=== PATIENT | female | born 1940 | race Caucasian/White ===

== ENCOUNTER → 2016-03-10 | Outpatient (CLI) | payer BC ==
[~2016-03-10] MED LIST: ALBU1AER9 INH; ATRIN INH; CRDCD240 PO; DIGO0.122 PO; LEVO50TA PO; METO-217 PO; SIMV40TA2 PO
[2016-03-10 09:37] LABS: BASO % 0.5 %; BASO ABS # 0.03 K/uL (0-0.2); COMPLETE YES; EOS % 2.3 %; HEMATOCRIT 40.6 % (37-47); IG% 0.5 %; LYMPH % 24.6 %; LYMPH ABS # 1.53 K/uL (1.2-3.4); MEAN CELL VOLUME 92.3 fL (80-100); MEAN CORPUSCULAR HEMOGLOBIN 31.1 pg (25-34); MEAN CORPUSCULAR HGB CONC 33.7 g/dl (32-36); MEAN PLATELET VOLUME 10.2 fL (7.4-10.4); NEUT % 63.1 %; PLATELET COUNT 223 K/uL (130-400); WHITE BLOOD COUNT 6.21 K/uL (4.8-10.8)
[2016-03-10 10:01] LABS: ESTIMATED AVERAGE GLUCOSE 108 mg/dl; HA1C FLAG Normal (Normal)
[2016-03-10 10:05] LABS: ALB/GLOB RATIO 1.2 (0.9-2); ALT/SGPT 35 U/L (12-78); AST/SGOT 21 U/L (15-37); BLOOD UREA NITROGEN 13 mg/dl (7-18); BUN/CREATININE RATIO 14.7 (10-20); CALCIUM 8.2 mg/dl (8.5-10.1); CARBON DIOXIDE 24 mmol/L (21-32); CHLORIDE 110 mmol/L (98-107); CHOLESTEROL 150 mg/dl (0-200); CREATININE 0.88 mg/dl (0.60-1.20); GLUCOSE 93 mg/dl (70-99); POTASSIUM 3.9 mmol/L (3.5-5.1); SODIUM 144 mmol/L (136-145); TRIGLYCERIDES 89 mg/dl (0-150); VERY LOW DENSITY LIPOPROT CALC 18 mg/dl
[2016-03-10 10:09] LABS: ALKALINE PHOSPHATASE 86 U/L (45-117); CHOLESTEROL/HDL RATIO 2.1; HDL CHOLESTEROL 72 mg/dl; LDL CHOLESTEROL CALCULATED 60 mg/dl
--- NOTE | 2016-03-17 06:57 | CODING QUERY MEDICAL NECESSITY ---
SUPPORTING DIAGNOSIS NEEDED A supporting diagnosis is required for the test/procedure performed on this patient in order for us to be reimbursed by the patient's insurance. Please provide a supporting diagnosis for the following test/procedure listed below next to the test name along with your signature. *If there is no additional diagnosis for this patient that would support the following test/procedure please document that below next to the test/procedure. Test(s)/Procedure(s) that require a supporting diagnosis: DOS 03/10 * Hba1c DIAGNOSIS: * Lipids DIAGNOSIS: Provider Signature: Date: Thank you Rena Abdullahi Health Information Management Once completed, please kindly fax back to [phone] For questions please call [phone]
== END | disposition home or self-care (01) ==
LOC: C.LAB 08:13
PROVIDERS: ATTEND Internal Medicine
DX: Z79.01 Long term (current) use of anticoagulants (principal); Z51.81 Encounter for therapeutic drug level monitoring; Z00.00 Encounter for general adult medical examination without abnormal findings; E78.5 Hyperlipidemia, unspecified

== ENCOUNTER → 2016-05-17 | Outpatient (CLI) | payer BC | END | disposition home or self-care (01) | LOC: C.PATHSPEC 13:53 | PROVIDERS: ATTEND Dermatology | DX: L57.0 Actinic keratosis (principal); L82.1 Other seborrheic keratosis ==

== ENCOUNTER → 2016-06-22 | Outpatient (CLI) | payer BC ==
--- NOTE | 2016-06-23 13:55 | MAMMOGRAPHY REPORT ---
BILATERAL DIGITAL SCREENING MAMMOGRAM WITH CAD: 06/22/2016 CLINICAL HISTORY: Routine screening. Patient has no complaints. TECHNIQUE: Bilateral CC and MLO views were obtained. Current study was also evaluated with a Comput er Aided Detection (CAD) system. COMPARISON: Comparison is made to exams dated: 06/10/2014 mammogram, 06/06/2013 mammogram, 06/05/2012 heydi mogram, 06/02/2011 mammogram, 06/01/2010 mammogram, and 05/29/2009 mammogram - [facility] nter. BREAST COMPOSITION: There are scattered areas of fibroglandular density in both breasts. FINDINGS: There are scattered benign-appearing punctate microcalcifications in the breasts. No new suspicious mass, architectural distortion or cluster of microcalcifications is seen. IMPRESSION: ACR BI-RADS CATEGORY 1: NEGATIVE There is no mammographic evidence of malignancy. A 1 year screening mammogram is recommended. The p atient will receive written notification of the results. Approximately 10% of breast cancers are not detected with mammography. A negative mammographic repor t should not delay biopsy if a clinically suggestive mass is present. Eda Mcgovern M.D. ay/:06/22/2016 16:25:54 Tong Hooker: Shazia MARTINEZ(Chucky)(Yohannes), [facility] letter sent: Normal 1/2 BI-RADS Code: ACR BI-RADS Category 1: Negative
== END | disposition home or self-care (01) ==
LOC: C.MAMM 13:02
PROVIDERS: ATTEND Internal Medicine
DX: Z12.31 Encounter for screening mammogram for malignant neoplasm of breast (principal)

== ENCOUNTER → 2016-12-10 | Outpatient (CLI) | payer BC ==
[2016-12-10 13:33] LABS: CALCIUM URINE 9.6 mg/dl
== END | disposition home or self-care (01) ==
LOC: C.LAB 11:45
PROVIDERS: ATTEND Internal Medicine
DX: C73 Malignant neoplasm of thyroid gland (principal); E89.2 Postprocedural hypoparathyroidism; E55.9 Vitamin D deficiency, unspecified

== ENCOUNTER → 2017-02-01 | Outpatient (CLI) | payer BC ==
[2017-02-01 17:43] LABS: BASO % 0.3 %; BASO ABS # 0.02 K/uL (0-0.2); COMPLETE YES; EOS % 1.2 %; HEMATOCRIT 42.2 % (37-47); IG% 0.4 %; LYMPH % 22.5 %; LYMPH ABS # 1.55 K/uL (1.2-3.4); MEAN CELL VOLUME 91.7 fL (80-100); MEAN CORPUSCULAR HEMOGLOBIN 31.3 pg (25-34); MEAN CORPUSCULAR HGB CONC 34.1 g/dl (32-36); MEAN PLATELET VOLUME 10.1 fL (7.4-10.4); NEUT % 67.6 %; PLATELET COUNT 226 K/uL (130-400); WHITE BLOOD COUNT 6.88 K/uL (4.8-10.8)
[2017-02-01 18:07] LABS: ALT/SGPT 21 U/L (12-78); AST/SGOT 17 U/L (15-37); BLOOD UREA NITROGEN 8 mg/dl (7-18); BUN/CREATININE RATIO 8.9 (10-20); CALCIUM 9.1 mg/dl (8.5-10.1); CARBON DIOXIDE 27 mmol/L (21-32); CHLORIDE 106 mmol/L (98-107); CREATININE 0.92 mg/dl (0.60-1.20); GLUCOSE 85 mg/dl (70-99); POTASSIUM 3.7 mmol/L (3.5-5.1); SODIUM 141 mmol/L (136-145)
[2017-02-01 18:17] LABS: ALB/GLOB RATIO 1.2 (0.9-2); ALKALINE PHOSPHATASE 96 U/L (45-117)
[2017-02-01 18:57] LABS: LYME DISEASE AB IGM NEG (NEG)
[2017-02-01 18:59] LABS: LYME DISEASE AB IGG NEG (NEG)
--- NOTE | 2017-02-07 10:54 | CODING QUERY MEDICAL NECESSITY ---
SUPPORTING DIAGNOSIS NEEDED Dr. Gunter, A supporting diagnosis is required for the test/procedure performed on this patient in order for us to be reimbursed by the patient's insurance. Please provide a supporting diagnosis for the following test/procedure listed below next to the test name along with your signature. *If there is no additional diagnosis for this patient that would support the following test/procedure please document that below next to the test/procedure. Test(s)/Procedure(s) that require a supporting diagnosis: * ([id number]) VITAMIN D ASSAY DIAGNOSIS: DATE OF SERVICE: 02/01/17 Provider Signature: Date: Thank you Jed Bunch [facility] Information Management Once completed, please kindly fax back to [phone] For questions please call [phone]
== END | disposition home or self-care (01) ==
LOC: C.LAB 16:38
PROVIDERS: ATTEND Internal Medicine
DX: M19.90 Unspecified osteoarthritis, unspecified site (principal); C73 Malignant neoplasm of thyroid gland; R53.83 Other fatigue; R41.3 Other amnesia; R68.89 Other general symptoms and signs

== ENCOUNTER → 2017-07-27 | Outpatient (CLI) | payer BC ==
--- NOTE | 2017-07-27 14:23 | MAMMOGRAPHY REPORT ---
BILATERAL DIGITAL SCREENING MAMMOGRAM TOMOSYNTHESIS WITH CAD: 07/27/2017 CLINICAL HISTORY: Routine screening. Patient has no complaints. TECHNIQUE: Breast tomosynthesis in addition to standard 2D mammography was performed. Current study was also evaluated with a Computer Aided Detection (CAD) system. COMPARISON: Comparison is made to exams dated: 06/22/2016 mammogram, 06/10/2014 mammogram, 06/06/2013 heydi mogram, 06/05/2012 mammogram, 06/02/2011 mammogram, and 06/01/2010 mammogram - [facility] er. BREAST COMPOSITION: There are scattered areas of fibroglandular density in both breasts. FINDINGS: No suspicious masses, calcifications, or areas of architectural distortion are noted in ei ther breast. There has been no significant interval change compared to prior exams. Scattered bilater al benign-appearing calcifications are not significantly changed. IMPRESSION: ACR BI-RADS CATEGORY 2: BENIGN There is no mammographic evidence of malignancy. A 1 year screening mammogram is recommended. The pa tient will receive written notification of the results. Approximately 10% of breast cancers are not detected with mammography. A negative mammographic report should not delay biopsy if a clinically suggestive mass is present. Velma Teran M.D. ah/:07/27/2017 12:21:30 Garbage Man: Bethany DESAI)(Yohannes), [facility] letter sent: Normal 1/2 BI-RADS Code: ACR BI-RADS Category 2: Benign
== END | disposition home or self-care (01) ==
LOC: C.MAMM 11:31
PROVIDERS: ATTEND Internal Medicine
DX: Z12.31 Encounter for screening mammogram for malignant neoplasm of breast (principal)

== ENCOUNTER 2021-06-02 11:05 | Observation (INO) ==
[2021-06-02] MEDS ORDERED: SODIUM CHLORIDE 0.9% 1000ML 1,000 ML IV ONE (11:27)
--- NOTE | 2021-06-02 11:30 | Emergency Department Note ---
Impression & Plan Syncope, Dementia, A-fib, Hypotension ED Provider Note NAME: MELIZA CONDON AGE: 80 SEX: F : 1940 ARRIVES VIA: Ambulance INFORMANT: Patient ED PROVIDER(S): Lg Medeiros DO CHIEF COMPLAINT: Syncope HPI: Patient is a 1-year-old female who presents the ER following syncope. Patient notes that she does not really remember the episode or what happened. She does have a history of dementia as well as paroxysmal A. fib, and mitral regurg. She denies all complaints at this time. notes that she woke up this morning was feeling slightly off and consequently back down with the bed. Patient then woke back up and went to get a shower to get ready and he heard a thud. He went in and she was sitting on her bottom behind the door. ROS: See above HPI for pertinent positives & negatives. A total of 10 systems reviewed and were otherwise negative. PAST MEDICAL HISTORY:See Below PAST SURGICAL HISTORY:See Below FAMILY HISTORY:See Below SOCIAL HISTORY:See Below HOME MEDICATIONS:See Below ALLERGIES:See Below VITALS:See Below PHYSICAL EXAMINATION: GENERAL: Sitting up in bed, alert, well appearing, well nourished, no distress, non-toxic EYE EXAM: normal conjunctiva. PERRL and EOM's grossly intact. HEAD: NC/AT OROPHARYNX: no exudate, no erythema, lips, buccal mucosa, and tongue normal and mucous membranes are moist NECK: supple, no nuchal rigidity, no adenopathy, non-tender LUNGS: Clear to auscultation. Normal chest wall mechanics HEART: no murmurs, S1 normal and S2 normal ABDOMEN: abdomen soft, non-tender, normo-active bowel sounds, no masses, no rebound or guarding. UPPER EXTREMITIES: upper extremities are grossly normal. LOWER EXTREMITIES: No pitting edema. NEURO EXAM: Awake alert following commands oriented to person and place cranial nerves II-XII grossly intact, normal speech, no gross weakness of arms, no gross weakness of legs. MEDICAL DECISION MAKING: Patient is an 80-year-old female who presents ER for above-stated complaint. IV was established blood was obtained. Labs showed no significant leukocytosis or anemia. BMP with slightly elevated chloride. LFTs bilirubin and lipase was unremarkable. Troponin was negative. Covid negative. TSH was slightly elevated. She was slightly hypotensive in the 80s initially on arrival but was given IV fluids. EKG was unremarkable but did show an A. fib. CT head and neck were negative. With the dementia she does not remember this occurring. She was updated and discussed with hospitalist for further evaluation. Triage Nursing notes reviewed. Limited review of prior medical records performed Vital Signs: reviewed and remarkable for hypotension Differential diagnosis: Differential diagnosis includes etiologies such as vasovagal event, infection, hypoglycemia, electrolyte abnormalities, cardiac sources, intracerebral event, toxicologic, neurologic, as well as others were entertained. ER treatment provided: See below Diagnostics interpreted by me: ECG: A. fib rate of 71 Normal axis No PVCs QTC 465 Cardiac Monitoring: An order was placed for continuous cardiac monitoring. The monitor shows a rate of 70 with sinus rhythm. Laboratory studies: As stated above and show below. Imaging studies: CT head was unremarkable Portable AP upright 1 view of the chest was unremarkable Consultation(s): Discussed with Dr. Gomez for further evaluation Procedures: none Critical Care: None Past Med/Surg History Medical History (Updated 06/02/21 @ 17:49 by Lg Medeiros DO) Alzheimer disease Anticoagulant long-term use xarelto daily Dementia Hyperlipidemia Hypoparathyroidism Hypothyroidism Moderate mitral regurgitation Paroxysmal atrial fibrillation follows with Dr. 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 Surgical History History of colonoscopy History of repair of right rotator cuff History of salpingo-oophorectomy History of tonsillectomy History of total abdominal hysterectomy History of total thyroidectomy Status post lymph node biopsy after thyroidectomy Family History Father Acute myocardial infarction Mother Alcoholism Other No family history of adverse response to anesthesia Denies family history of Ovarian cancer Prostate cancer Myocardial infarction Breast cancer Lung cancer Colorectal cancer Social History Smoking Status: Former smoker Tobacco Type: Cigarettes Age Started Using Tobacco: 18; Age Quit Using Tobacco: 23; Second Hand Exposure: No; Hx Alcohol Use: Yes Alcohol type: beer and wine Alcohol Intake Frequency: Monthly or Less Alcohol Intake Frequency Comment: on occassion Hx Substance Use: No Preferred Language: Welsh Communication Ability: Effective Visual Impairment: Limited Hearing Ability: Hard of Hearing Toy Maker Required: No Beliefs That Will Affect Care: None marital status: Current Living Situation: Spouse current occupational status: retired How many Children do You have: 2 Feels Safe at Home: Yes Safety Concerns: Feels Safe At This Time Childhood Exposure to Second-Hand Smoke: No caffeine: Yes (drinks coffee and tea ) Dental Care, Regularly: Yes Physical Activity Frequency: Daily Physical Activity Frequency Comment: tries to walk throughout the week Seatbelt Use: always Sunscreen Use: Yes (states sometimes ) Assistive Devices: None Allergies Allergies Allergy/AdvReac Type Severity Reaction Status Date / Time donepezil Allergy Intermediate cramping Verified 06/02/21 12:37 with legs rivastigmine Allergy Mild Rash Verified 06/02/21 12:37 liothyronine AdvReac Unknown 05/03/11-HOLD Verified 06/02/21 12:[address] CANDELARIO Home Meds Home Medications Medication Instructions Recorded Confirmed calcium carbonate 200 mg calcium 400 mg PO QDL tab 09/01/18 06/02/21 (500 mg) chewable tablet cholecalciferol (vitamin D3) 25 1,000 units PO QDL tab 09/01/18 06/02/21 mcg (1,000 unit) tablet cyanocobalamin (vitamin B-12) 1,000 mcg PO QAM cap 09/01/18 06/02/21 1,000 mcg capsule levothyroxine 125 mcg tablet 125 mcg PO QAM #90 tab 09/01/18 06/02/21 diltiazem HCl 240 mg 240 mg PO QPM 01/05/21 06/02/21 capsule,extended release 24 hr metoprolol succinate 100 mg 100 mg PO QAM 01/05/21 06/02/21 tablet,extended release 24 hr Previous Rx's Medication Instructions Recorded memantine 10 mg tablet 10 mg PO BID #180 tab 03/24/21 simvastatin 40 mg tablet 40 mg PO QPM #90 tab 05/04/21 rivaroxaban 20 mg tablet (Xarelto) 20 mg PO QPM #90 tab 05/11/21 Results & Data (ED) Vital Signs Vital Signs - 24 hr 06/02/21 11:05 06/02/21 11:09 06/02/21 11:21 Temperature 37.1 C Temperature Source Oral Pulse Rate 85 71 Pulse Rate [Left Radial] Pulse Rhythm Regular Regular Pulse Rhythm [Left Radial] Pulse Strength Normal Respiratory Rate 20 20 Respiratory Effort / Characteristics Non-Labored Respiratory Depth Normal Respiratory Pattern Regular Blood Pressure 86/56 L Blood Pressure [Left Arm] Blood Pressure Mean 66 Blood Pressure Mean [Left Arm] Blood Pressure Position Lying Blood Pressure Position [Left Arm] Pulse Oximetry 98 96 Oxygen Delivery Method Room Air Room Air Room Air Sepsis Recent Fever Within 48 Hours No Sepsis New/Unexplained Change in Mental Status No Sepsis Action Taken by Nursing No Action Required 06/02/21 12:09 Temperature Temperature Source Pulse Rate Pulse Rate [Left Radial] 66 Pulse Rhythm Pulse Rhythm [Left Radial] Irregular Pulse Strength Respiratory Rate 20 Respiratory Effort / Characteristics Respiratory Depth Normal Respiratory Pattern Blood Pressure Blood Pressure [Left Arm] 112/58 L Blood Pressure Mean Blood Pressure Mean [Left Arm] 76 Blood Pressure Position Blood Pressure Position [Left Arm] Lying Pulse Oximetry 97 Oxygen Delivery Method Room Air Sepsis Recent Fever Within 48 Hours Sepsis New/Unexplained Change in Mental Status Sepsis Action Taken by Nursing Laboratory Data Result diagrams: 06/02/21 11:19 06/02/21 11:19 Lab Results 06/02/21 06/02/21 06/02/21 Range/Units 11:19 11:19 11:19 WBC 7.34 (4.8-10.8) K/uL RBC 4.43 (4.2-5.4) M/uL Hgb 14.3 (12.0-16.0) g/dL Hct 42.6 (37-47) % MCV 96.2 (80-100) fL MCH 32.3 (25-34) pg MCHC 33.6 (32-36) g/dL RDW Std Deviation 44.7 (36.4-46.3) fL RDW Coeff of Fabian 12.7 (11.5-14.5) % Plt Count 204 (130-400) K/uL MPV 10.6 H (7.4-10.4) fL Immature Gran % (Auto) 0.3 % Neut % (Auto) 76.0 % Lymph % (Auto) 15.9 % [place] % (Auto) 6.7 % Eos % (Auto) 0.8 % Baso % (Auto) 0.3 % Neut # (Auto) 5.58 (1.4-6.5) K/uL Lymph # (Auto) 1.17 L (1.2-3.4) K/uL [place] # (Auto) 0.49 (0.11-0.59) K/uL Eos # (Auto) 0.06 (0-0.5) K/uL Baso # (Auto) 0.02 (0-0.2) K/uL Immature Gran # (Auto) 0.02 (0.00-0.02) K/uL Sodium 142 (136-145) mmol/L Potassium 3.7 (3.5-5.1) mmol/L Chloride 108 H (98-107) mmol/L Carbon Dioxide 25 (21-32) mmol/L Anion Gap 9 (3-11) BUN 20 (6-23) mg/dl Creatinine 0.94 (0.6-1.2) mg/dl Est Cr Clr Drug Dosing Not Reportable Est GFR ( Amer) 65.5 ml/min Est GFR (Non-Af Amer) 56.5 ml/min BUN/Creatinine Ratio 21.3 H (10-20) Glucose 133 H (70-99(Fasting)) mg/dl Calcium 8.7 (8.5-10.1) mg/dl Total Bilirubin 0.9 (0.2-1.0) mg/dl AST 17 (13-39) U/L ALT 11 (7-52) U/L Alkaline Phosphatase 73 (34-104) U/L Troponin I < 0.03 (0-0.04) ng/ml Total Protein 6.4 (6.0-8.3) gm/dl Albumin 4.0 (3.4-5.0) gm/dl Globulin 2.4 L (2.5-4.0) gm/dl Albumin/Globulin Ratio 1.7 (0.9-2) Lipase 29 (11-82) U/L TSH 5.866 H (0.300-4.500) uIu/ml Free T4 1.18 (0.61-1.60) ng/dl SARS-CoV-2, RNA, NAAT (NEGATIVE) 06/02/21 Range/Units 13:02 WBC (4.8-10.8) K/uL RBC (4.2-5.4) M/uL Hgb (12.0-16.0) g/dL Hct (37-47) % MCV (80-100) fL MCH (25-34) pg MCHC (32-36) g/dL RDW Std Deviation (36.4-46.3) fL RDW Coeff of Fabian (11.5-14.5) % Plt Count (130-400) K/uL MPV (7.4-10.4) fL Immature Gran % (Auto) % Neut % (Auto) % Lymph % (Auto) % [place] % (Auto) % Eos % (Auto) % Baso % (Auto) % Neut # (Auto) (1.4-6.5) K/uL Lymph # (Auto) (1.2-3.4) K/uL [place] # (Auto) (0.11-0.59) K/uL Eos # (Auto) (0-0.5) K/uL Baso # (Auto) (0-0.2) K/uL Immature Gran # (Auto) (0.00-0.02) K/uL Sodium (136-145) mmol/L Potassium (3.5-5.1) mmol/L Chloride (98-107) mmol/L Carbon Dioxide (21-32) mmol/L Anion Gap (3-11) BUN (6-23) mg/dl Creatinine (0.6-1.2) mg/dl Est Cr Clr Drug Dosing Est GFR ( Amer) ml/min Est GFR (Non-Af Amer) ml/min BUN/Creatinine Ratio (10-20) Glucose (70-99(Fasting)) mg/dl Calcium (8.5-10.1) mg/dl Total Bilirubin (0.2-1.0) mg/dl AST (13-39) U/L ALT (7-52) U/L Alkaline Phosphatase (34-104) U/L Troponin I (0-0.04) ng/ml Total Protein (6.0-8.3) gm/dl Albumin (3.4-5.0) gm/dl Globulin (2.5-4.0) gm/dl Albumin/Globulin Ratio (0.9-2) Lipase (11-82) U/L TSH (0.300-4.500) uIu/ml Free T4 (0.61-1.60) ng/dl SARS-CoV-2, RNA, NAAT NEGATIVE (NEGATIVE) Administered Medications Lactated Ringer's (Lr) 1,000 mls @ 80 mls/hr IV .[id number] BRIGIDO Stop: 07/02/21 13:16 Last Admin: 06/02/21 14:26 Dose: 80 mls/hr Documented by: [id number] Discontinued Medications Sodium Chloride (Nss 1000ml) 1,000 mls @ 999 mls/hr IV .[id number] ONE Stop: 06/02/21 12:27 Last Infusion: 06/02/21 12:47 Dose: 0 mls/hr Documented by: [id number] Admin: 06/02/21 11:43 Dose: 999 mls/hr Documented by: [id number] Imaging Data Radiologist's Impression: Chest X-Ray 06/02/21 11:25 SINGLE VIEW CHEST CLINICAL HISTORY: Atypical chest pain. FINDINGS: An AP, portable, upright chest radiograph is compared to study dated 05/03/2011. The heart is enlarged noting atherosclerotic calcification of the thoracic aorta. The pulmonary vasculature is noncongested. Chronic interstitial thickening is similar to previous. There is mild bibasilar scarring/atelectasis. The lungs and pleural spaces are otherwise clear. No pneumothorax is seen. The skeletal structures are osteopenic. The bony thorax is grossly intact. Arthritic change is noted in the shoulders. IMPRESSION: Cardiomegaly with no active disease in the chest. ACT 112: Negative or not required by law. Electronically signed by: Lonny Kendrick M.D. 06/02/2021 12:[address] 06/02/21 11:27 CT head/brain wo con CLINICAL HISTORY: 80 years-old Female with syncope. Acute syncope TECHNIQUE: Multiple axial CT images of the head were obtained without contrast. A dose lowering technique was utilized adhering to the principles of ALARA. CT DOSE: 788.63 mGycm COMPARISON: Brain MRI 07/30/2014 FINDINGS: No acute intracranial hemorrhage, midline shift, intracranial mass, hydrocephalus, territorial ischemia or abnormal extra-axial collection. Age- related involutional changes. Cerebral vascular and falx cerebri calcifications noted. Mild white matter hypodensities suggest chronic microvascular ischemic disease. The calvarium is intact. Prior bilateral lens repair. The paranasal sinuses, mastoid air cells, and middle ear cavities are clear. IMPRESSION: No acute intracranial abnormality or calvarial fracture. ACT 112: Negative or not required by law. The above report was generated using voice recognition software. It may contain grammatical, syntax or spelling errors. Electronically signed by: Jose Bradford M.D. 06/02/2021 12:27 PM Discharge Plan Visit Data Chief Complaint: Syncope Stated Complaint: SYNCOPE ED Provider: Lg Medeiros Discharge Problem: Syncope, Dementia, A-fib, Hypotension Patient Disposition: Admitted As Inpatient Discharge Instructions Interventions: ED Discharge Assessment Last Done: 06/02/21 17:10 Discharge Problem: Syncope Qualifiers: Syncope type: unspecified Qualified Code(s): R55 - Syncope and collapse Dementia Qualifiers: Dementia type: unspecified type Dementia behavioral disturbance: without behavioral disturbance Qualified Code(s): F03.90 - Unspecified dementia without behavioral disturbance A-fib Qualifiers: Atrial fibrillation type: unspecified Qualified Code(s): I48.91 - Unspecified atrial fibrillation Hypotension Qualifiers: Hypotension type: unspecified hypotension type Qualified Code(s): I95.9 - Hypotension, unspecified
[2021-06-02 11:37] LABS: Basophils # (auto) 0.02 K/uL (0-0.2); Basophils % (auto) 0.3 %; Eosinophils # (auto) 0.06 K/uL (0-0.5); Eosinophils % (auto) 0.8 %; Hematocrit (blood only) 42.6 % (37-47); Hemoglobin 14.3 g/dL (12.0-16.0); Immature Granulocytes # (auto) 0.02 K/uL (0.00-0.02); Immature Granulocytes % (auto) 0.3 %; Lymphocytes # (auto) 1.17 K/uL (1.2-3.4); Lymphocytes % (auto) 15.9 %; Mean Corpuscular Hemoglobin 32.3 pg (25-34); Mean Corpuscular Hgb Conc 33.6 g/dL (32-36); Mean Corpuscular Volume 96.2 fL (80-100); Mean Platelet Volume 10.6 fL (7.4-10.4); Monocytes # (auto) 0.49 K/uL (0.11-0.59); Monocytes % (auto) 6.7 %; Neutrophils # (auto) 5.58 K/uL (1.4-6.5); Platelet Count 204 K/uL (130-400); RDW Coefficient of Variation 12.7 % (11.5-14.5); RDW Standard Deviation 44.7 fL (36.4-46.3); Red Blood Count 4.43 M/uL (4.2-5.4); White Blood Count 7.34 K/uL (4.8-10.8)
--- NOTE | 2021-06-02 12:11 | XRay Report ---
SINGLE VIEW CHEST CLINICAL HISTORY: Atypical chest pain. FINDINGS: An AP, portable, upright chest radiograph is compared to study dated 05/03/2011. The heart i s enlarged noting atherosclerotic calcification of the thoracic aorta. The pulmonary vasculature is n oncongested. Chronic interstitial thickening is similar to previous. There is mild bibasilar scarring /atelectasis. The lungs and pleural spaces are otherwise clear. No pneumothorax is seen. The skeletal structures are osteopenic. The bony thorax is grossly intact. Arthritic change is noted in the shoul ders. IMPRESSION: Cardiomegaly with no active disease in the chest. ACT 112: Negative or not required by law. Electronically signed by: Lonny Kendrick M.D. 06/02/2021 12:10 PM
[2021-06-02 12:14] LABS: Troponin I < 0.03 ng/ml (0-0.04)
[2021-06-02 12:16] LABS: Alanine Aminotransferase 11 U/L (7-52); Albumin Globulin Ratio 1.7 (0.9-2); Alkaline Phosphatase 73 U/L (34-104); Anion Gap 9 (3-11); Aspartate Aminotransferase 17 U/L (13-39); BUN Creatinine Ratio 21.3 (10-20); Bilirubin,Total 0.9 mg/dl (0.2-1.0); Blood Urea Nitrogen 20 mg/dl (6-23); Calcium 8.7 mg/dl (8.5-10.1); Carbon Dioxide 25 mmol/L (21-32); Chloride 108 mmol/L (98-107); Est GFR (African American) 65.5 ml/min; Est GFR (Non-African American) 56.5 ml/min; Globulin 2.4 gm/dl (2.5-4.0); Glucose 133 mg/dl (70-99(Fasting)); Lipase 29 U/L (11-82); Potassium 3.7 mmol/L (3.5-5.1); Sodium 142 mmol/L (136-145); Total Protein 6.4 gm/dl (6.0-8.3)
--- NOTE | 2021-06-02 12:28 | CT Scan Report ---
CT head/brain wo con CLINICAL HISTORY: 80 years-old Female with syncope. Acute syncope TECHNIQUE: Multiple axial CT images of the head were obtained without contrast. A dose lowering tech nique was utilized adhering to the principles of ALARA. CT DOSE: 788.63 mGycm COMPARISON: Brain MRI 07/30/2014 FINDINGS: No acute intracranial hemorrhage, midline shift, intracranial mass, hydrocephalus, territorial ischem ia or abnormal extra-axial collection. Age-related involutional changes. Cerebral vascular and falx c erebri calcifications noted. Mild white matter hypodensities suggest chronic microvascular ischemic d isease. The calvarium is intact. Prior bilateral lens repair. The paranasal sinuses, mastoid air cells, and m iddle ear cavities are clear. IMPRESSION: No acute intracranial abnormality or calvarial fracture. ACT 112: Negative or not required by law. The above report was generated using voice recognition software. It may contain grammatical, syntax o r spelling errors. Electronically signed by: Jose Bradford M.D. 06/02/2021 12:27 PM
--- NOTE | 2021-06-02 12:42 | Electrocardiogram Report ---
Test Reason : Blood Pressure : / mmHG Vent. Rate : 071 BPM Atrial Rate : 416 BPM P-R Int : 000 ms QRS Dur : 082 ms QT Int : 428 ms P-R-T Axes : 000 -23 -15 degrees QTc Int : 465 ms Poor data quality, interpretation may be adversely affected Atrial fibrillation Poor R wave progression, consider anterior AK vs. lead placement vs. LVH Abnormal ECG When compared with ECG of 06-MAY-2011 06:49, No significant change was found Confirmed by Dallin Preston ([id number]) on 06/02/2021 12:42:06 PM Referred By: Confirmed By:Dallin Preston
--- NOTE | 2021-06-02 13:22 | History & Physical Report ---
Date of Service June 02, 2021 Assessment & Plan (1) Syncope: Plan: -Unwitnessed, at home this morning, with full recovery to baseline within minutes. -Differential diagnosis includes vasovagal versus dehydration versus cardiogenic cause. Without electrolyte lab abnormalities, no signs of infection, no elevated troponin. Most likely, the combination of hot shower and her fasting state have caused this syncopal episode, however will rule out other possible etiologies. -Patient has not had an echo recently in our system, follows with Dr. Ya who deferred ordering one at her last visit last month as her A. fib is well controlled and she is asymptomatic. Given her syncopal episode we will order one today. -Received 1 L normal saline IVF bolus in ED, continue IVF with LR at 80 cc/hour, also encourage p.o. intake. -On telemetry. (2) Atrial fibrillation, permanent: Plan: -Permanent A. fib, rate today in 70s. -On Xarelto 20 mg daily, as well as metoprolol 100 mg daily and diltiazem 240 mg in the evening. We will continue these during her stay. -Patient was initially hypotensive in ED, hold diltiazem and metoprolol for HR <60 or SBP <100. (3) Hyperlipidemia: Plan: -Continue simvastatin 40 mg daily. (4) Dementia: Plan: -Mild to moderate memory impairment, can participate in basic ADLs independently or with some assistance. -Continue Namenda 10 mg twice daily. (5) Hypothyroidism: Plan: -S/p thyroidectomy + ablation in 2007 due to metastatic papillary thyroid cancer. -Follows with Dr. García at [facility] yearly, last visit in October 2020. -Continue levothyroxine 125 mcg daily. -Check TSH with reflex T4 today. (6) Hypoparathyroidism: Plan: -S/P total thyroidectomy. -Continue calcium, vitamin D supplementation. -Magnesium level ordered. Plan: -Dispo: Obs on med/tele -SCDs, Xarelto for DVT ppx. -Full Code History of Present Illness Chief Complaint: possible syncopal episode this morning Primary Care Provider: Joey Gunter MD Patient is an 80-year-old female with past medical history of permanent afibb, (rate controlled and on Xarelto), hypothyroidism, hyperlipidemia, and dementia who presents today from home via EMS after an unwitnessed syncopal episode at home. Per patient's , patient got up this morning to shower, shortly after this he heard a thud in the bathroom. When he entered, he saw patient was slumped against the wall. He states she initially seemed out of it, but shortly after was speaking with him and in her normal state of mind. She does have baseline dementia, but can participate in basic ADLs and is able to tell me she got up to shower on an empty stomach this morning and attributes this as well as the hot shower to the syncopal episode. She been feeling in her normal state of health up to this point, no fever/chills, generalized weakness, confusion, speech difficulties, diaphoresis, chest pain, palpitations, shortness of breath, cough, nausea, vomiting, abdominal pain, visual changes, numbness/tingling, motor deficits, changes to bowel movements, dysuria, increased urinary frequency/urgency. No incontinence during the episode, no lacerations to tongue, no other injuries sustained. In ED, patient was initially hypotensive with BP 86/56, now normotensive after 1 L IV bolus, otherwise VS within normal limits and stable. Labs unremarkable, UA currently pending. CT head without evidence of acute intracranial hemorrhage, midline shift, intracranial mass, hydrocephalus, territorial ischemia or abnorm al extra-axial collection. CXR showed cardiomegaly with no active disease in the chest. Allergies Allergy/AdvReac Type Severity Reaction Status Date / Time donepezil Allergy Intermediate cramping Verified 06/02/21 12:37 with legs rivastigmine Allergy Mild Rash Verified 06/02/21 12:37 liothyronine AdvReac Unknown 05/03/11-HOLD Verified 06/02/21 12:[address] CANDELARIO Home Medications Medication Instructions Recorded Confirmed Type calcium carbonate 200 mg calcium 400 mg PO QDL tab 09/01/18 06/02/21 History (500 mg) chewable tablet cholecalciferol (vitamin D3) 25 1,000 units PO QDL tab 09/01/18 06/02/21 History mcg (1,000 unit) tablet cyanocobalamin (vitamin B-12) 1,000 mcg PO QAM cap 09/01/18 06/02/21 History 1,000 mcg capsule levothyroxine 125 mcg tablet 125 mcg PO QAM #90 tab 09/01/18 06/02/21 History diltiazem HCl 240 mg 240 mg PO QPM 01/05/21 06/02/21 History capsule,extended release 24 hr metoprolol succinate 100 mg 100 mg PO QAM 01/05/21 06/02/21 History tablet,extended release 24 hr memantine 10 mg tablet 10 mg PO BID #180 tab 03/24/21 06/02/21 Rx simvastatin 40 mg tablet 40 mg PO QPM #90 tab 05/04/21 06/02/21 Rx rivaroxaban 20 mg tablet (Xarelto) 20 mg PO QPM #90 tab 05/11/21 06/02/21 Rx Past Med/Surg History Medical History (Updated 06/02/21 @ 18:04 by Luna Garcia PA-C) Alzheimer disease Anticoagulant long-term use xarelto daily Dementia Hyperlipidemia Hypoparathyroidism Hypothyroidism Moderate mitral regurgitation Paroxysmal atrial fibrillation follows with Dr. 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 Surgical History History of colonoscopy History of repair of right rotator cuff History of salpingo-oophorectomy History of tonsillectomy History of total abdominal hysterectomy History of total thyroidectomy Status post lymph node biopsy after thyroidectomy Family History Father Acute myocardial infarction Mother Alcoholism Other No family history of adverse response to anesthesia Denies family history of Ovarian cancer Prostate cancer Myocardial infarction Breast cancer Lung cancer Colorectal cancer Social History Smoking Status: Former smoker Tobacco Type: Cigarettes Age Started Using Tobacco: 18; Age Quit Using Tobacco: 23; Second Hand Exposure: No; Hx Alcohol Use: Yes Alcohol type: beer and wine Alcohol Intake Frequency: Monthly or Less Alcohol Intake Frequency Comment: on occassion Hx Substance Use: No Preferred Language: [place] Communication Ability: Effective Visual Impairment: Limited Hearing Ability: Hard of Hearing Lead Performance Support Analyst Required: No Beliefs That Will Affect Care: None marital status: Current Living Situation: Spouse current occupational status: retired How many Children do You have: 2 Feels Safe at Home: Yes Safety Concerns: Feels Safe At This Time Childhood Exposure to Second-Hand Smoke: No caffeine: Yes (drinks coffee and tea ) Dental Care, Regularly: Yes Physical Activity Frequency: Daily Physical Activity Frequency Comment: tries to walk throughout the week Seatbelt Use: always Sunscreen Use: Yes (states sometimes ) Assistive Devices: None Review of Systems Review of Systems: Constitutional: No fever/chills, night sweats, weakness, or fatigue Eyes: No diplopia, no worsening or blurred vision ENT: normal hearing, no trouble swallowing Respiratory: No cough, sputum, dyspnea at rest or on exertion Cardiovascular: No chest pain, tightness or palpitations Abdomen: No pain, nausea, vomiting, diarrhea or constipation Musculoskeletal: No joint pain, calf pain, swelling Neurologic: No weakness, numbness/tingling, or balance problems Psychiatric: No anxiety or depression Skin: No rash or itch Physical Exam Physical Exam: General: awake, alert, no apparent distress Head: Normocephalic, atraumatic ENT: PERRL, EOMI, no pharyngeal exudate, mucous membranes moist Chest: Clear to auscultation, on room air, no adventitious breath sounds Cardiac: irregularly irregular rhythm with a regular rate, no murmur, no JVD, normal peripheral pulses, good capillary refill Abdominal: NABS x 4 quadrants, soft, nontender to palpation, no rebound, guarding or tenderness Extremities: Normal inspection, no peripheral edema or erythema, calfs nontender to palpation Psych: Normal mood and affect Neuro: AAO x 3, strength intact bilaterally and rated 5/5, no motor deficits, speech is clear, no peripheral sensory deficits Skin: no rash or erythema Results & Data Results & Data ([facility]) Vital Signs (Past 12 Hours) Vital Signs Temp Pulse Pulse Resp BP BP Pulse Ox 06/02/21 12:09 66 20 112/58 L 97 06/02/21 11:21 37.1 C 71 20 86/56 L 96 06/02/21 11:05 85 20 98 Laboratory Results Abnormal lab results 06/02/21 06/02/21 Range/Units 11:19 11:19 MPV 10.6 H (7.4-10.4) fL Lymph # (Auto) 1.17 L (1.2-3.4) K/uL Chloride 108 H (98-107) mmol/L BUN/Creatinine Ratio 21.3 H (10-20) Glucose 133 H (70-99(Fasting)) mg/dl Globulin 2.4 L (2.5-4.0) gm/dl Diagnostic Findings Chest X-Ray 06/02/21 11:25 SINGLE VIEW CHEST CLINICAL HISTORY: Atypical chest pain. FINDINGS: An AP, portable, upright chest radiograph is compared to study dated 05/03/2011. The heart is enlarged noting atherosclerotic calcification of the thoracic aorta. The pulmonary vasculature is noncongested. Chronic interstitial thickening is similar to previous. There is mild bibasilar scarring/atelectasis. The lungs and pleural spaces are otherwise clear. No pneumothorax is seen. The skeletal structures are osteopenic. The bony thorax is grossly intact. Arthritic change is noted in the shoulders. IMPRESSION: Cardiomegaly with no active disease in the chest. ACT 112: Negative or not required by law. Electronically signed by: Lonny Kendrick M.D. 06/02/2021 12:[address] 06/02/21 11:27 CT head/brain wo con CLINICAL HISTORY: 80 years-old Female with syncope. Acute syncope TECHNIQUE: Multiple axial CT images of the head were obtained without contrast. A dose lowering technique was utilized adhering to the principles of ALARA. CT DOSE: 788.63 mGycm COMPARISON: Brain MRI 07/30/2014 FINDINGS: No acute intracranial hemorrhage, midline shift, intracranial mass, hydrocephalus, territorial ischemia or abnormal extra-axial collection. Age- related involutional changes. Cerebral vascular and falx cerebri calcifications noted. Mild white matter hypodensities suggest chronic microvascular ischemic disease. The calvarium is intact. Prior bilateral lens repair. The paranasal sinuses, mastoid air cells, and middle ear cavities are clear. IMPRESSION: No acute intracranial abnormality or calvarial fracture. ACT 112: Negative or not required by law. The above report was generated using voice recognition software. It may contain grammatical, syntax or spelling errors. Electronically signed by: Jose Bradford M.D. 06/02/2021 12:27 PM ECG Additional Comments: Atrial fibrillation Poor R wave progression, consider anterior KS vs. lead placement vs. LVH Abnormal ECG When compared with ECG of 06-MAY-2011 06:49, No significant change was found Code Status & VTE Plan Code Status Full Code. VTE Prophylaxis Plan VTE Prophylaxis will be ordered: Yes Supervising Physician Co-Signing Physician Notes Attending Attestation and Admission Note: Pt seen/examined, chart reviewed, care plan d/w LIV Garcia. I agree with the feliciano components of her documentation. 80yo female with advanced dementia who presented after an apparent syncopal episode at home today. According to her who was at bedside she has been in her usual state of health today and over the last few days. Eating fine/drinking well, no recent falls, no recent illness. Pt's found her in the bathroom outside the shower on the ground. She p assed out; episode was brief. Regained consciousness quickly. During my visit she denied pain in any location. states she has not complained of headache, pelvic or hip pain, back pain, neck pain, etc. Further, states she has NOT c/o dizziness at any time recently. PMH/PSH/allergies/meds/sochx/famhx - reviewed Vitals - BP low upon presentation, now improved but still low-normal gen - confused 2nd dementia but NAD; speech clear face - no droop mouth - MMM neck - no JVD heart - irregular, s1 s2, no murmur lungs - CTA b/l abd - soft NT ND BS+ ext - no edema musculo - no pain to palpation over c-spine/t-spine/l-spine; passive ROM b/l hips without pain; no signs of trauma except mild old-appearing bruises on dorsum hands labs and imaging reviewed A/P: syncope - suspect neurocardiogenic given the low BP upon presentation. vasovagal? rapid a.fib? other? check formal orthostatic BPs. echo. telemetry. repeat labs am. u/a to ensure no developing UTI. nothing by history to suggest seizure. gentle fluids overnight. Kalen Ruffin MD PG Care Time/CCT Total # of Minutes Spent Total Time Spent with Patient: Total time spent is greater than 50% in coordination of care (as documented) at patient's floor/unit and/or counseling patient: Coding Level of Care Code INT OBSERVATION CARE 70M LVL 3 Diagnoses Syncope T67.1XXA Encounter type: initial encounter Syncope type: heat syncope Atrial fibrillation, permanent I48.21 Hyperlipidemia E78.5 Hyperlipidemia type: unspecified Dementia F03.90 Dementia behavioral disturbance: without behavioral disturbance Dementia type: unspecified type Hypothyroidism E03.9 Hypoparathyroidism E20.8 Hypoparathyroidism type: other hypoparathyroidism (1) Dementia Dementia behavioral disturbance: without behavioral disturbance Dementia type: unspecified type Qualified Code(s): F03.90 - Unspecified dementia without behavioral disturbance (2) Hyperlipidemia Hyperlipidemia type: unspecified Qualified Code(s): E78.5 - Hyperlipidemia, unspecified (3) Hypoparathyroidism Hypoparathyroidism type: other hypoparathyroidism Qualified Code(s): E20.8 - Other hypoparathyroidism (4) Syncope Encounter type: initial encounter Syncope type: heat syncope Qualified Code(s): T67.1XXA - Heat syncope, initial encounter
[2021-06-02] MEDS: LACTATED RINGER'S 1,000 ML IV SCH (14:26)
[2021-06-02 14:38] LABS: Thyroid Stimulating Hormone 5.866 uIu/ml (0.300-4.500)
--- NOTE | 2021-06-02 16:12 | XCELERA ---
[id number] \\[id number]
[2021-06-02] MEDS ORDERED: POLYETHYLENE (MIRALAX) 17 GM PACK PO PRN (17:31)
[2021-06-02] MEDS ORDERED: ACETAMINOPHEN 325 MG TAB PO PRN (17:31)
[2021-06-02] MEDS ORDERED: ONDANSETRON INJ 2 MG/ML 2 ML VIAL IV PRN (17:31)
[2021-06-02 17:41] LABS: T4 Free Thyroxine 1.18 ng/dl (0.61-1.60)
[2021-06-02] MEDS ORDERED: RIVAROXABAN 20 MG TAB PO SCH (18:00)
[2021-06-02] MEDS ORDERED: dilTIAZem HCL 240 MG CAPCR PO SCH (21:00)
[2021-06-02] MEDS ORDERED: SIMVASTATIN 10 MG TAB PO SCH (21:00)
[2021-06-02] MEDS ORDERED: dilTIAZem HCL 120 MG CAPCR PO SCH (21:00)
[2021-06-02] MEDS: MEMANTINE HCL 10 MG TAB PO SCH (21:17)
[2021-06-03] MEDS: LACTATED RINGER'S 1,000 ML IV SCH ×2 (06:04→14:46)
[2021-06-03] MEDS ORDERED: LEVOTHYROXINE SODIUM 125 MCG TABLET PO SCH (06:30)
[2021-06-03] MEDS: MEMANTINE HCL 10 MG TAB PO SCH (08:00)
[2021-06-03 08:14] LABS: Basophils # (auto) 0.01 K/uL (0-0.2); Basophils % (auto) 0.1 %; Eosinophils # (auto) 0.05 K/uL (0-0.5); Eosinophils % (auto) 0.7 %; Immature Granulocytes # (auto) 0.01 K/uL (0.00-0.02); Immature Granulocytes % (auto) 0.1 %; Lymphocytes # (auto) 1.23 K/uL (1.2-3.4); Lymphocytes % (auto) 17.7 %; Mean Corpuscular Hemoglobin 32.9 pg (25-34); Mean Corpuscular Volume 94.1 fL (80-100); Mean Platelet Volume 10.2 fL (7.4-10.4); Monocytes # (auto) 0.55 K/uL (0.11-0.59); Monocytes % (auto) 7.9 %; Neutrophils # (auto) 5.11 K/uL (1.4-6.5); Neutrophils % (auto) 73.5 %; Platelet Count 165 K/uL (130-400); RDW Coefficient of Variation 12.8 % (11.5-14.5); RDW Standard Deviation 44.2 fL (36.4-46.3); Red Blood Count 4.25 M/uL (4.2-5.4); White Blood Count 6.96 K/uL (4.8-10.8)
[2021-06-03] MEDS ORDERED: METOPROLOL SUCC 50MG EXT REL TAB PO SCH (09:00)
[2021-06-03] MEDS ORDERED: CYANOCOBALAMIN (B-12) 500 MCG TABLET PO SCH (09:00)
[2021-06-03 09:02] LABS: BUN Creatinine Ratio 18.6 (10-20); Calcium 8.6 mg/dl (8.5-10.1); Creatinine Clr Calc Pharmacy 47.6 ml/min; Est GFR (African American) 72.9 ml/min; Est GFR (Non-African American) 62.9 ml/min; Magnesium 1.8 mg/dl (1.7-2.4); Potassium 3.8 mmol/L (3.5-5.1)
[2021-06-03] MEDS ORDERED: CALCIUM CARBONATE 500 MG CHEWABLE TAB PO SCH (11:30)
[2021-06-03] MEDS ORDERED: CHOLECALCIFEROL 1,000 UNITS 25 MCG TAB PO SCH (11:30)
[2021-06-03 16:28] LABS: Appearance Urine Clear (Clear); Bacteria Urine Automated Negative (Negative); Bilirubin Urine Negative (Negative); Blood Urine 1+ (Negative); Cast Urine Automated 0 /lpf (0-5); Color Urine Yellow; Glucose Urine UA Negative (Negative); Ketones Urine Negative (Negative); Leukocyte Esterase Urine Trace (Negative); Nitrite Urine Negative (Negative); Protein Urine Negative (Negative); Specific Gravity Urine 1.009 (1.000-1.030); Urobilinogen Urine Negative (Negative); pH Urine 6.5 (4.5-7.5)
[2021-06-03] MEDS ORDERED: RIVAROXABAN 15 MG TAB PO SCH (16:30)
--- NOTE | 2021-06-03 17:17 | Discharge Summary ---
Date of Service date of admission - June 02, 2021 date of discharge - June 03, 2021 Admission HPI Per Admitting Provider Patient is an 80-year-old female with past medical history of permanent afibb, (rate controlled and on Xarelto), hypothyroidism, hyperlipidemia, and dementia who presents today from home via EMS after an unwitnessed syncopal episode at home. Per patient's , patient got up this morning to shower, shortly after this he heard a thud in the bathroom. When he entered, he saw patient was slumped against the wall. He states she initially seemed out of it, but shortly after was speaking with him and in her normal state of mind. She does have baseline dementia, but can participate in basic ADLs and is able to tell me she got up to shower on an empty stomach this morning and attributes this as well as the hot shower to the syncopal episode. She been feeling in her normal state of health up to this point, no fever/chills, generalized weakness, confusion, speech difficulties, diaphoresis, chest pain, palpitations, shortness of breath, cough, nausea, vomiting, abdominal pain, visual changes, numbness/tingling, motor deficits, changes to bowel movements, dysuria, increased urinary frequency/urgency. No incontinence during the episode, no lacerations to tongue, no other injuries sustained. In ED, patient was initially hypotensive with BP 86/56, now normotensive after 1 L IV bolus, otherwise VS within normal limits and stable. Labs unremarkable, UA currently pending. CT head without evidence of acute intracranial hemorrhage, midline shift, intracranial mass, hydrocephalus, territorial ischemia or abnormal extra-axial collection. CXR showed cardiomegaly with no active disease in the chest. Principal Diagnosis Syncope - 2nd to low blood pressure Discharge Exam gen - NAD, pleasant confusion head - no signs of trauma mouth - MMM neck - supple, no lymphadenopathy heart - irregularly irregular, s1 s2, 1/6 systolic murmur LLSB lungs - CTA b/l abd - soft NT ND BS+ ext - no edema, pulses 2+ b/l neuro - strength 5/5 x 4 exts; no facial droop Discharge Data Allergies Allergy/AdvReac Type Severity Reaction Status Date / Time donepezil Allergy Intermediate cramping Verified 06/02/21 12:37 with legs rivastigmine Allergy Mild Rash Verified 06/02/21 12:37 liothyronine AdvReac Unknown 05/03/11-HOLD Verified 06/02/21 12:[address] CANDELARIO Consultations Physical Therapy Procedures Performed Echocardiogram - * EF 55-60% * mild-moderate mitral regurgitation * mild-moderate tricuspid regurgitation * no regional wall motion abnormalities Ordered Studies Chest X-Ray 06/02/21 11:25 SINGLE VIEW CHEST CLINICAL HISTORY: Atypical chest pain. FINDINGS: An AP, portable, upright chest radiograph is compared to study dated 05/03/2011. The heart is enlarged noting atherosclerotic calcification of the thoracic aorta. The pulmonary vasculature is noncongested. Chronic interstitial thickening is similar to previous. There is mild bibasilar scarring/atelectasis. The lungs and pleural spaces are otherwise clear. No pneumothorax is seen. The s keletal structures are osteopenic. The bony thorax is grossly intact. Arthritic change is noted in the shoulders. IMPRESSION: Cardiomegaly with no active disease in the chest. ACT 112: Negative or not required by law. Electronically signed by: Lonny Kendrick M.D. 06/02/2021 12:[address] 06/02/21 11:27 CT head/brain wo con CLINICAL HISTORY: 80 years-old Female with syncope. Acute syncope TECHNIQUE: Multiple axial CT images of the head were obtained without contrast. A dose lowering technique was utilized adhering to the principles of ALARA. CT DOSE: 788.63 mGycm COMPARISON: Brain MRI 07/30/2014 FINDINGS: No acute intracranial hemorrhage, midline shift, intracranial mass, hydrocephalus, territorial ischemia or abnormal extra-axial collection. Age- related involutional changes. Cerebral vascular and falx cerebri calcifications noted. Mild white matter hypodensities suggest chronic microvascular ischemic disease. The calvarium is intact. Prior bilateral lens repair. The paranasal sinuses, mastoid air cells, and middle ear cavities are clear. IMPRESSION: No acute intracranial abnormality or calvarial fracture. ACT 112: Negative or not required by law. The above report was generated using voice recognition software. It may contain grammatical, syntax or spelling errors. Electronically signed by: Jose Bradford M.D. 06/02/2021 12:27 PM Hospital Course (1) Syncope: At the time of ER presentation the patient's blood pressure was low with systolic BP in the 80s. Following isotonic IV fluids her BPs improved. She was continued on fluids for about 24 hours after admission. Her BPs remained stable for the remainder of her stay. We did lower the dose of her diltiazem CD due to the hypotension but left her metoprolol succinate at her previous dose. Echocardiogram did not show any findings that would have precipitated syncope. CT head was negative for acute stroke. There were no active infections found. Telemetry showed rate-controlled a.fib. With activity her HR erik to the 115- 120 range but this is certainly acceptable. She likely had neurocardiogenic syncope due to low blood pressure. I cannot rule out a classic vasovagal episode leading to the event. Perhaps a prolonged fast, coupled with the hot shower - along with multiple medications that affect blood pressure - were to blame for this event. At discharge we advised the following - 1. LOWER diltiazem CD dose from 240mg daily to 180mg daily; new prescription provided. 2. Keep metoprolol succinate at current dose of 100mg daily. We briefly discussed that dementia medications can lead to low blood pressure and dizziness but apparently she had been on those medications for several years; thus, her namenda was unlikely to have contributed to the event. If the patient were to continue having syncope could consider an EEG, 30-day event monitor, carotid studies, etc. (2) Atrial fibrillation, permanent: Patient had been taking Xarelto 20 mg daily, metoprolol succinate 100 mg daily and diltiazem 240 mg in the evening for her a.fib. As noted in #1 above her diltiazem CD dose was lowered from 240mg to 180mg daily due to the low blood pressure issue. In addition, her Xarelto dose was reduced from 20mg to 15mg daily due to creatinine clearance <50. New prescription given for the new Xarelto dose. Again rates were largely controlled/at goal throughout her stay. Due to the dose adjustment in her diltiazem CD I recommended she f/u with Dr Pastor Ya, her university relations vice president, in 1-2 weeks after discharge. (3) Hyperlipidemia: Continue simvastatin 40 mg daily as previous. (4) Dementia: Continue Namenda 10 mg twice daily. (5) Hypothyroidism: S/p thyroidectomy + ablation in 2007 due to metastatic papillary thyroid cancer. Follows with Dr. García at [facility] yearly, last visit in October 2020. Continue levothyroxine 125 mcg daily. TSH was 5.8 this admission (modestly high). I recommended that her PCP or Dr García recheck the TSH in 3-4 weeks and if still high a dose adjustment can be made at that time. (6) Hypoparathyroidism: Continue calcium, vitamin D supplementation. Magnesium level was wnl. The patient was seen by PT during her stay and cleared for home with her . Total Time Total Time Spent Total Time Spent (In Minutes): 40 Discharge Plan Discharge Items Patient Disposition: Home - Self-Care Reason For Visit: SYNCOPE (Passing Out Spell) Discharge Diagnosis: Syncope/passing out spell - due to low blood pressure. Low blood pressure resolved. Activity: Resume your previous activity Non-emergency contact: Primary Care Provider Call non-emergency contact if: you have any medication questions and your symptoms worsen Follow-up/Referrals: Joey Gunter MD [Primary Care Provider] - 06/10/21 2:00 pm (Appointment with Samaria Whitaker PA-C) Pastor Ya MD [Physician] - (1-2 weeks to check your a.fib and for f/u of this episode of syncope) Diet: Regular Addtl Attending Provider Instructions: Mrs Reveles, You were admitted to the hospital after having an episode of syncope (passing out) in your bathroom at home. Your came to your aid after the event. Fortunately you regained consciousness quickly. Upon arrival to [facility] your blood pressure was low, and this improved after receiving IV fluids. After admission we monitored your a.fib on the heart monitor. This did not show any slow heart rate, heart block, or other types of abnormal heart rhythms. Your echocardiogram heart ultrasound showed normal heart function. Chest x-ray was normal (no pneumonia). COVID testing was negative. Your initial urine test was not overly suspicious for urinary tract infection. CT head did not show stroke, and your neurological exam was normal. It is suspected that your syncope/passing out spell was due to low blood pressure. Please see "syncope" handout below. If you have continued episodes of syncope other tests may be needed including a 30-day heart monitor, EEG test to rule out seizures, etc. Recommendations - 1. Please LOWER your diltiazem medication from 240mg once daily to 180mg once daily. Ok to start this TOMORROW. 2. Please LOWER your Xarelto medication from 20mg daily to 15mg daily. Ok to start this TOMORROW. 3. Your TSH thyroid level was 5.8. Previous levels were normal. The 5.8 is modestly high. Please have Dr Gunter repeat your thyroid level in about 1 month. Alternatively, Dr García at [facility] could repeat this for you. 4. A urine culture has been sent to check for urinary tract infection. If this shows an infection we will call you and prescribe an antibiotic. 5. I would recommend that while showering to use a shower chair. This will allow you to sit which will lower the chances of having syncope. Be sure to avoid prolonged, hot showers which can also lend itself to feeling faint and/or passing out. Follow-up - see Dr Gunter within 1 week; see Dr Ya in 1-2 weeks Return to [facility] if - * you have fever over 100 degrees * you have additional episodes of syncope * you have shortness of breath or chest pain * any other concerns It was our pleasure to care for you at [facility]! Dr Ruffin Pending Studies at Discharge: Yes Studies:: Urine culture Stand-Alone Forms: My [facility], Smoking Cessation Medications and DC Order Prescriptions: Continued simvastatin 40 mg tablet 40 mg PO QPM Qty: 90 RF: 3 memantine 10 mg tablet 10 mg PO BID Qty: 180 RF: 3 cyanocobalamin (vitamin B-12) 1,000 mcg capsule 1,000 mcg PO QAM RF: 0 levothyroxine 125 mcg tablet 125 mcg PO QAM Qty: 90 RF: 0 calcium carbonate 200 mg calcium (500 mg) tablet,chewable 400 mg PO QDL RF: 0 cholecalciferol (vitamin D3) 1,000 unit tablet 1,000 units PO QDL RF: 0 metoprolol succinate 100 mg tablet extended release 24 hr 100 mg PO QAM RF: 0 Changed diltiazem HCl 180 mg capsule,extended release 24 hr 180 mg PO DAILY Qty: 30 RF: 2 rivaroxaban 15 mg tablet 15 mg PO DAILY Qty: 30 RF: 2 Discharge Orders: Discharge Order (Routine); Ordered 06/03/21 Ordered By: Kalen Viera/Other Patient Handouts: Causes of Syncope Admission Data Admit Date/Time: 06/02/21 13:17 Attending Provider: Kalen Ruffin Admit Provider: Kalen Ruffin Primary Care Provider: Joey Gunter Other Providers: Kalen Ruffin Other Interventions: Discharge Summary Assessment (RN) Last Done: 06/03/21 17:03 Coding Level of Care Code 13232 OBS Care - Discharge Diagnoses Syncope T67.1XXA Encounter type: initial encounter Syncope type: heat syncope Atrial fibrillation, permanent I48.21 Hyperlipidemia E78.5 Hyperlipidemia type: unspecified Dementia F03.90 Dementia behavioral disturbance: without behavioral disturbance Dementia type: unspecified type Hypothyroidism E03.9 Hypoparathyroidism E20.8 Hypoparathyroidism type: other hypoparathyroidism
== END 2021-06-03 17:30 | disposition home or self-care (01) ==
LOC: ED 11:05 → 2N 11:05

== ENCOUNTER 2024-02-08 12:05 | Inpatient (IN) ==
[2024-02-08] MEDS: SODIUM CHLORIDE 0.9% 1,000 ML IV SCH (12:29)
[2024-02-08 12:43] LABS: Hematocrit (blood only) 39.6 % (37.0-47.0); Hemoglobin 13.3 g/dl (12.0-16.0); Mean Corpuscular Hemoglobin 32.9 pg (25.0-34.0); Mean Corpuscular Hgb Conc 33.6 g/dL (32.0-36.0); Platelet Count 194 K/uL (130-400); RDW Standard Deviation 43.7 fL (36.4-46.3); Red Blood Count 4.04 M/uL (4.20-5.40); White Blood Count 21.25 K/ul (4.8-10.8)
[2024-02-08 12:47] LABS: Base Excess VBG 2.5 mEq/L; HCO3 VBG 28 mmol/L; Oxygen Saturation VBG < 60.0 %; PCO2 VBG 45 mmHg (38-50); PO2 VBG 20 mmHg
[2024-02-08 12:53] LABS: Albumin Level 4.1 gm/dl (3.4-5.0); BUN Creatinine Ratio 13.2 (10-20); Bilirubin,Total 1.3 mg/dl (0.2-1.0); Calcium 8.8 mg/dl (8.6-10.3); Creatinine Clr Calc Pharmacy 42.6 ml/min; Magnesium 1.7 mg/dl (1.7-2.4); Potassium 3.8 mmol/L (3.5-5.1); Total Protein 6.1 gm/dl (6.0-8.3)
[2024-02-08 12:59] LABS: Troponin I High Sensitivity 10.1 pg/ml (0-14)
[2024-02-08 13:04] LABS: Basophils # (auto) 0.02 K/uL (0.00-0.20); Basophils % (auto) 0.1 %; Immature Granulocytes # (auto) 0.16 K/uL (0.01-0.20); Immature Granulocytes % (auto) 0.8 %; Lymphocytes # (auto) 0.31 K/uL (1.20-3.40); Lymphocytes % (auto) 1.5 %; Monocytes # (auto) 1.16 K/uL (0.11-0.59); Monocytes % (auto) 5.5 %; Neutrophils % (auto) 92.1 %; Ovalocytes 1+; Tear Drop Cells 1+
[2024-02-08 13:05] LABS: INR 1.2 (0.9-1.1); Partial Thromboplastin Ratio 1.2; Partial Thromboplastin Time 31 Seconds (21-31); Prothrombin Time 12.8 Seconds (9.0-12.0)
--- NOTE | 2024-02-08 13:05 | CT Scan Report ---
CT head/brain wo con CLINICAL HISTORY: 83 years-old Female with ams. Acutely altered mental status TECHNIQUE: Multiple axial CT images of the head were obtained without contrast. A dose lowering tech nique was utilized adhering to the principles of ALARA. CT DOSE: 547.75 mGy.cm COMPARISON: 06/02/2021 FINDINGS: No acute intracranial hemorrhage, midline shift, intra-axial mass, hydrocephalus, territorial ischemi a or abnormal extra-axial collection. Involutional changes with chronic microvascular ischemic diseas e. Vascular and cerebral vascular calcifications redemonstrated. 6 mm extra-axial calcification adjac ent to the inferior left frontal lobe on image 9 series 2 is unchanged. The calvarium is intact. Moderate mucosal thickening of the ethmoid air cells. Small left maxillary air fluid level. Mastoid air cells are clear. Unremarkable soft tissues. IMPRESSION: No acute intracranial abnormality. ACT 112: Negative or not required by law. The above report was generated using voice recognition software. It may contain grammatical, syntax o r spelling errors. Electronically signed by: Jose Bradford M.D. 02/08/2024 1:03 PM
[2024-02-08] MEDS: CEFEPIME 2000MG 2,000 MG/20 ML SYR IV STA (13:08)
[2024-02-08] MEDS: SODIUM CHLORIDE 0.9% 1,000 ML IV ONE (13:08)
[2024-02-08 13:19] LABS: Appearance Urine Clear (Clear); Bacteria Urine Automated None Seen (None Seen); Bilirubin Urine 1+ (Negative); Blood Urine Negative (Negative); Cast Urine Automated 0-2 /lpf (0-2); Color Urine Orange; Glucose Urine UA Negative (Negative); Ketones Urine 1+ (Negative); Leukocyte Esterase Urine Trace (Negative); Mucus Urine Present (None Prsent); Nitrite Urine Negative (Negative); Protein Urine 1+ (Negative); RBC Urine Automated 0-2 /hpf (0-2); Specific Gravity Urine 1.022 (1.000-1.030); Urobilinogen Urine Negative (Negative); WBC Urine Automated 0-5 /hpf (0-5)
[2024-02-08] MEDS ORDERED: VANCOMYCIN CONSULT ACTIVE PRN (13:21)
--- NOTE | 2024-02-08 13:29 | XRay Report ---
XR chest 1V portable CLINICAL HISTORY: Sepsis. COMPARISON STUDY: Chest radiograph June 02, 2021. FINDINGS: Cardiomegaly is noted. There is pulmonary vascular congestion. Moderate right lower lung ai rspace opacity is present. There is a small to moderate right pleural effusion. There is no pneumotho rax. No consolidation within the left lung is present. IMPRESSION: 1. Cardiomegaly with pulmonary vascular congestion. 2. Small to moderate right pleural effusion. Right lower lung opacity may reflect pneumonia. Atelecta sis could appear similar. Radiographic follow-up to ensure resolution is recommended. ACT 112: Negative or not required by law. Electronically signed by: Hugo Drake M.D. 02/08/2024 1:28 PM
[2024-02-08 13:38] LABS: Influenza A virus by PCR Negative (Neg); Influenza B virus by PCR Negative (Neg); RSV by PCR Negative (Neg); SARS CoV2 RNA(COVID-19) Ceph NEGATIVE (Negative)
--- NOTE | 2024-02-08 13:51 | History & Physical Report ---
Date of Service February 08, 2024 Assessment & Plan (1) RLL pneumonia: Plan: Right lower lobe pneumonia Leukocytosis, elevated procalcitonin, right lower lobe infiltrate on admitting chest x-ray Presented with hypoxia, tachycardia, hypotension with leukocytosis and identified source. Patient met sepsis criteria on admission. Lactate normal Blood cultures pending Sputum culture added Patient was given 2.5 L NSS while in the ER. This satisfies the ABW sepsis goals of 2223 cc. Additional fluids deferred due to blood pressure improvement in pulmonary congestion Remains with elevated rate, suspect due to A-fib No history of resistant pneumonia. Clinically improved at the bedside. Will narrow antibiotics to Rocephin for CAP, +/- MRSA ongoing coverage based on nasal swab once results available (2) Atrial fibrillation, permanent: Plan: A-fib Last echo with EF 55-60%, moderate MR, moderate TR Patient missed her morning meds. Will give metoprolol succinate 100 mg x 1 at time of admission. Defer multiple long-acting blood pressure agents in the setting of hypotension and sepsis. Will add diltiazem 30 mg every 6 hours x 2 starting at 4, and resume the long-acting formulation /. May give additional IV 1 or 2 doses if needed for rate control overnight Rivaroxaban continued Patient has been compliant with her rivaroxaban, manages her medications reports no missed doses in the last several weeks. She did not take her medicines this morning prior to coming in however Troponin normal on admission Magnesium 1.7, x 1 given. Optimize potassium 4.0, magnesium 2.0 (3) Hypothyroidism: Plan: Continue Synthroid (4) Alzheimer disease: Plan: Dementia CThead without acute finding Continue home donepezil/memantine Delirium precautions Plan DVT prophylaxis: Anticoagulated Diet: Regular Disposition: PCU for sepsis CODE STATUS: DNR/DNI History of Present Illness Primary Care Provider: Yaritza Coello MD Lisa Reveles is an 83-year-old female with a past medical history of Alzheimer's disease, hyperlipidemia, peripheral vascular disease, pressure ulcer, hypothyroidism, A-fib on anticoagulation who presented to the ER on referral from PCP for cough, generalized weakness worsening x 1 week and with concerned about ability to provide care for her at home on her own due to her acute illness and increased needs. Patient was referred for sepsis rule out and PT/OT. While in the ER patient was found to have a leukocytosis of 21.2, normal VBG, elevated procalcitonin at 0.76, uninfected UA, CThead with no acute findings, and chest x-ray with small right pleural effusion and right lower lung opacity suspicious for pneumonia. Mild pulmonary vascular congestion cardiomegaly were noted. BioFire was pending on admission. While in the ER patient was given cefepime/vancomycin for pneumonia and recommended for admission. Lisa is seen with her at the bedside. They report that they went to family's for Thanksgiving and she had a slight cough at that time however this is progressed and she has had a thick heavy cough with intermittent sputum production although they do not know what color. Denies fevers, but patient has felt generally unwell with progressive worsening since Thanksgiving. Denies chest pain or chest pressure. Patient denies shortness of breath but endorses cough. Denies night sweats. History is somewhat limited by dementia and collected with the assistance of her at bedside. Patient has not missed any doses of her medications in the last week including her blood thinner, although has not yet taken her morning medications other than Synthroid. No recent medication changes. No nausea/vomiting/abdominal pain. No dysuria. Does have a history of right lower extremity wounds which are healing/improving and have not had any worsening recently. Does have a history of A-fib and has felt her heart fluttering sometimes, but denies chest pain/chest pressure. Former tobacco use in the distant past. Half a can of hard seltzer split with her sometimes at dinner otherwise no alcohol use. Medication allergies reviewed DNR/DNI, reviewed with patient and at bedside. Allergies Allergy/AdvReac Type Severity Reaction Status Date / Time rivastigmine Allergy Mild Rash Verified 02/08/24 11:01 liothyronine AdvReac Unknown 05/03/11-HOLD Verified 02/08/24 11:[address] CANDELARIO Home Medications Medication Instructions Recorded Confirmed Type cholecalciferol (vitamin D3) 25 1,000 units PO QDD 09/01/18 02/08/24 History mcg (1,000 unit) tablet cyanocobalamin (vitamin B-12) 1,000 mcg PO QAM 09/01/18 02/08/24 History 1,000 mcg capsule calcium carbonate (Calcium 500) 500 mg PO HS 11/16/22 02/08/24 History memantine 10 mg tablet 10 mg PO BID 90 days #180 tabs 06/06/23 02/08/24 Rx donepezil 5 mg tablet 5 mg PO HS 30 days #30 tabs 10/13/23 02/08/24 Rx metoprolol succinate 100 mg 100 mg PO QAM #90 tabs 10/17/23 02/08/24 Rx tablet,extended release 24 hr simvastatin 40 mg tablet 40 mg PO HS #90 tabs 11/09/23 02/08/24 Rx diltiazem HCl 180 mg capsule,24 180 mg PO DAILY #90 caps 11/14/23 02/08/24 Rx hr,extended release rivaroxaban 15 mg tablet 15 mg PO DAILY #90 tabs 11/14/23 02/08/24 Rx levothyroxine 125 mcg tablet 125 mcg PO DAILY #90 tabs 11/22/23 02/08/24 Rx (Synthroid) Past Med/Surg History Problem List (Updated 02/08/24 @ 13:48 by Joey Sheffield MD) RLL pneumonia Venous ulcer of right leg (Acute) Chronic acquired lymphedema (Chronic) Abnormal ankle brachial index (ANNI) (Acute) Hyperlipidemia Osteopenia Osteoarthritis of knees, bilateral Situational anxiety Weight loss Alzheimer disease Moderate mitral regurgitation (Acute) Anticoagulant long-term use (Acute) xarelto daily Medical History Primary cancer of thyroid with metastasis to other site Syncope Atrial fibrillation, permanent Hypothyroidism Hypoparathyroidism Surgical History History of repair of right rotator cuff History of colonoscopy Status post lymph node biopsy History of total abdominal hysterectomy History of tonsillectomy History of total thyroidectomy History of salpingo-oophorectomy Family History Father Acute myocardial infarction Mother Alcoholism Other No family history of adverse response to anesthesia Denies family history of Ovarian cancer Prostate cancer Myocardial infarction Breast cancer Lung cancer Colorectal cancer Social History Smoking Status: Former smoker Tobacco Type: Cigarettes Age Started Using Tobacco: 18; Age Quit Using Tobacco: 23; packs per day: 0.5; Second Hand Exposure: No; Do You Dip or Chew Tobacco: No; Hx Alcohol Use: Yes Alcohol type: beer and wine Alcohol Intake Frequency: Monthly or Less Alcohol Intake Frequency Comment: on occassion Hx Substance Use: No Preferred Language: Bengali Communication Ability: Effective Communication Ability Comment: per pt and pt can sign own consent--however does have memory issues Visual Impairment: Limited Hearing Ability: Normal [employer] Supervisor Required: No Beliefs That Will Affect Care: None marital status: Current Living Situation: Spouse current occupational status: retired How many Children do You have: 2 How many Children do You have Comment: children are not local, is able to assist with care as needed. Feels Safe at Home: Yes Childhood Exposure to Second-Hand Smoke: No Diet: regular Diet Comment: takes boost regularly caffeine: Yes (drinks coffee and tea ) during the past year weight has: remained stable Dental Care, Regularly: Yes Physical Activity Frequency: Daily Physical Activity Frequency Comment: tries to walk throughout the week Seatbelt Use: always Sunscreen Use: Yes (states sometimes ) Assistive Devices: None Physical Exam Physical Exam: General: Oriented to name only. Conversationally tangential. No acute distress HEENT: Atraumatic, normocephalic. Vision/hearing grossly intact Pulm: In the right lower lobe symmetrical chest rise. No increased work of breathing. No respiratory distress. Cardiac: IRiR, systolic murmur present radial pulses intact and symmetrical. Abdominal: Nontender, nondistended, soft. BS present. Extremities: Lower extremities with compression dressings in place.. Cap refill less than 2 seconds at bedside Results & Data Results & Data Vital Signs (Past 12 Hours) Vital Signs Temp Pulse Pulse Resp BP BP Pulse Ox 02/08/24 13:15 85 L 02/08/24 13:05 126 H 18 112/75 93 02/08/24 13:05 90 02/08/24 13:03 122 H 24 112/75 93 02/08/24 12:54 124 H 21 02/08/24 12:51 116 H 02/08/24 12:50 120 H 18 112/75 92 02/08/24 12:08 36.5 C 123 H 20 88/51 L 96 O2 Del Method 02/08/24 13:15 Room Air, Nasal Cannula 02/08/24 13:05 Room Air 02/08/24 13:05 Room Air 02/08/24 13:03 Room Air 02/08/24 12:54 02/08/24 12:51 02/08/24 12:50 Room Air 02/08/24 12:08 Room Air PG Care Time/CCT Total # of Minutes Spent Total Time Spent with Patient: Total time spent is greater than 50% in coordination of care (as documented) at patient's floor/unit and/or counseling patient: Coding Level of Care Code 56291 INT INP/OBS CARE 3/75MIN Diagnoses RLL pneumonia J18.9 Atrial fibrillation, permanent I48.21 Hypothyroidism E03.9 Alzheimer disease G30.9; F02.80
[2024-02-08] MEDS: VANCOMYCIN HCL 1,500 MG in SODIUM CHLORIDE 0.9% 500 ML IV ONE (14:46)
[2024-02-08] MEDS: SODIUM CHLORIDE 0.9% 500 ML IV ONE (14:53)
[2024-02-08 15:01] LABS: Adenovirus PCR Not Detected (NotDetected); Bordetella parapertussis PCR Not Detected (NotDetected); Bordetella pertussis PCR Not Detected (NotDetected); Chlamydia pneumoniae PCR Not Detected (NotDetected); Coronavirus 229E PCR Not Detected (NotDetected); Coronavirus CoV-2 (COVID19)PCR Not Detected (NotDetected); Coronavirus HKU1 PCR Not Detected (NotDetected); Coronavirus NL63 PCR Not Detected (NotDetected); Coronavirus OC43PCR Not Detected (NotDetected); Human Metapneumovirus PCR Not Detected (NotDetected); Influenza A PCR Not Detected (NotDetected); Influenza B PCR Not Detected (NotDetected); Mycoplasma pneumoniae PCR Not Detected (NotDetected); Parainfluenza Virus 1 PCR Not Detected (NotDetected); Parainfluenza Virus 2 PCR Not Detected (NotDetected); Parainfluenza Virus 3 PCR Not Detected (NotDetected); Parainfluenza Virus 4 PCR Not Detected (NotDetected); Respiratory Syncytial VirusPCR Not Detected (NotDetected); Rhinovirus/Enterovirus PCR Not Detected (NotDetected)
[2024-02-08] MEDS: MAGNESIUM SULFATE / D5W 1 GM/100 ML BAG IV ONE (15:29)
[2024-02-08] MEDS: METOPROLOL SUCC 50MG EXT REL TAB PO STA (15:33)
--- NOTE | 2024-02-08 15:55 | Electrocardiogram Report ---
Test Reason : Blood Pressure : */* mmHG Vent. Rate : 119 BPM Atrial Rate : * BPM P-R Int : * ms QRS Dur : 70 ms QT Int : 318 ms P-R-T Axes : * -21 -13 degrees QTcB Int : 447 ms Atrial fibrillation with rapid ventricular response Abnormal ECG When compared with ECG of 02-Jun-2021 11:11, Vent. rate has increased by 48 bpm Nonspecific T wave abnormality has replaced inverted T waves in Inferior leads Confirmed by Dallin Preston ([id number]) on 02/08/2024 3:55:05 PM Referred By: Shameka Rizvi Confirmed By: Dallin Preston
[2024-02-08] MEDS: dilTIAZem HCL 30 MG TAB PO SCH (16:29)
[2024-02-08] MEDS: CHOLECALCIFEROL 25 MCG (1000 UNITS) TAB PO SCH (18:42)
--- NOTE | 2024-02-08 20:56 | Emergency Department Note ---
History of Present Illness General Chief complaint: Referred by Doctor Stated complaint: PNEUMONIA, SOB, COUGH Time Seen by Provider: 02/08/24 12:20 Source: family ( at bedside) History of Present Illness Provider complaint: Cough shortness of breath 83-year-old female presents emergency department for cough and shortness of breath. Patient has a history of dementia and the history is provided by the . reports that the patient is been coughing for the last week and reports she was increasingly weak today. No falls or traumas. No nausea vomiting or diarrhea. Home Medications Medication Instructions Recorded Confirmed Type cholecalciferol (vitamin D3) 25 1,000 units PO QDD 09/01/18 02/08/24 History mcg (1,000 unit) tablet cyanocobalamin (vitamin B-12) 1,000 mcg PO QAM 09/01/18 02/08/24 History 1,000 mcg capsule calcium carbonate (Calcium 500) 500 mg PO HS 11/16/22 02/08/24 History memantine 10 mg tablet 10 mg PO BID 90 days #180 tabs 06/06/23 02/08/24 Rx donepezil 5 mg tablet 5 mg PO HS 30 days #30 tabs 10/13/23 02/08/24 Rx metoprolol succinate 100 mg 100 mg PO QAM #90 tabs 10/17/23 02/08/24 Rx tablet,extended release 24 hr simvastatin 40 mg tablet 40 mg PO HS #90 tabs 11/09/23 02/08/24 Rx diltiazem HCl 180 mg capsule,24 180 mg PO DAILY #90 caps 11/14/23 02/08/24 Rx hr,extended release rivaroxaban 15 mg tablet 15 mg PO DAILY #90 tabs 11/14/23 02/08/24 Rx levothyroxine 125 mcg tablet 125 mcg PO DAILY #90 tabs 11/22/23 02/08/24 Rx (Synthroid) Allergies Allergy/AdvReac Type Severity Reaction Status Date / Time rivastigmine Allergy Mild Rash Verified 02/08/24 11:01 liothyronine AdvReac Unknown 05/03/11-HOLD Verified 02/08/24 11:[address] CANDELARIO Past Med/Surg History Problem List (Updated 02/08/24 @ 20:56 by Danilo Rahman MD) Hypoxia (Acute) Sepsis (Acute) Pneumonia (Acute) RLL pneumonia Venous ulcer of right leg (Acute) Chronic acquired lymphedema (Chronic) Abnormal ankle brachial index (ANNI) (Acute) Hyperlipidemia Osteopenia Osteoarthritis of knees, bilateral Situational anxiety Weight loss Alzheimer disease Moderate mitral regurgitation (Acute) Anticoagulant long-term use (Acute) xarelto daily Medical History 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 Syncope Atrial fibrillation, permanent Hypothyroidism Hypoparathyroidism Surgical History History of repair of right rotator cuff History of colonoscopy Status post lymph node biopsy after thyroidectomy History of total abdominal hysterectomy History of tonsillectomy History of total thyroidectomy History of salpingo-oophorectomy Family History Father Acute myocardial infarction Mother Alcoholism Other No family history of adverse response to anesthesia Denies family history of Ovarian cancer Prostate cancer Myocardial infarction Breast cancer Lung cancer Colorectal cancer Social History Smoking Status: Never smoker Tobacco Type: Cigarettes Age Started Using Tobacco: 18; Age Quit Using Tobacco: 23; packs per day: 0.5; Second Hand Exposure: No; Do You Dip or Chew Tobacco: No; Hx Alcohol Use: Yes Alcohol type: beer and wine Alcohol Intake Frequency: Monthly or Less Alcohol Intake Frequency Comment: on occassion Hx Substance Use: No Preferred Language: Croatian Communication Ability: Effective Communication Ability Comment: dementia Visual Impairment: Limited Hearing Ability: Normal Chainstitch Pants Outseamer Required: No Beliefs That Will Affect Care: None marital status: Current Living Situation: Spouse current occupational status: retired How many Children do You have: 2 How many Children do You have Comment: children are not local, is able to assist with care as needed. Other Information That Helps Us Care for You: No Feels Safe at Home: Yes Safety Concerns: Feels Safe At This Time Childhood Exposure to Second-Hand Smoke: No Diet: regular Diet Comment: takes boost regularly caffeine: Yes (drinks coffee and tea ) during the past year weight has: remained stable Dental Care, Regularly: Yes Physical Activity Frequency: Daily Physical Activity Frequency Comment: tries to walk throughout the week Seatbelt Use: always Sunscreen Use: Yes (states sometimes ) Assistive Devices: Glasses Physical Exam Vital Signs Vital Signs - 24 hr 02/08/24 12:08 02/08/24 12:50 02/08/24 12:51 Temperature 36.5 C Temperature Source Temporal Artery Scan Pulse Rate 123 H 116 H Pulse Rate [Apical] 120 H Pulse Rate from SpO2 Sensor Pulse Rhythm Regular Pulse Strength Normal Respiratory Rate 20 18 Respiratory Effort / Characteristics Non-Labored Spontaneous Non-Labored Spontaneous Respiratory Depth Normal Normal Blood Pressure 88/51 L Blood Pressure [Right Arm] 112/75 Blood Pressure Mean 63 Blood Pressure Mean [Right Arm] 87 Blood Pressure Position Sitting Pulse Oximetry 96 92 Oxygen Delivery Method Room Air Room Air Sepsis Recent Fever Within 48 Hours No Sepsis New/Unexplained Change in Mental Status N/A Sepsis Action Taken by Nursing No Action Required Oxygen Flow Rate - Titration Pulse Oximetry Post Tiitration 02/08/24 12:54 02/08/24 13:03 02/08/24 13:05 Temperature Temperature Source Pulse Rate 124 H 122 H Pulse Rate [Apical] Pulse Rate from SpO2 Sensor 109 H 125 H Pulse Rhythm Pulse Strength Respiratory Rate 21 24 Respiratory Effort / Characteristics Respiratory Depth Blood Pressure 112/75 Blood Pressure [Right Arm] Blood Pressure Mean 87 Blood Pressure Mean [Right Arm] Blood Pressure Position Pulse Oximetry 93 90 Oxygen Delivery Method Room Air Room Air Sepsis Recent Fever Within 48 Hours Sepsis New/Unexplained Change in Mental Status Sepsis Action Taken by Nursing Oxygen Flow Rate - Titration Pulse Oximetry Post Tiitration 02/08/24 13:05 02/08/24 13:15 02/08/24 13:27 Temperature Temperature Source Pulse Rate 120 H Pulse Rate [Apical] 126 H Pulse Rate from SpO2 Sensor 114 H Pulse Rhythm Pulse Strength Respiratory Rate 18 26 H Respiratory Effort / Characteristics Non-Labored Spontaneous Respiratory Depth Normal Blood Pressure Blood Pressure [Right Arm] 112/75 Blood Pressure Mean Blood Pressure Mean [Right Arm] 87 Blood Pressure Position Pulse Oximetry 93 85 L 95 Oxygen Delivery Method Room Air Room Air Nasal Cannula Sepsis Recent Fever Within 48 Hours Sepsis New/Unexplained Change in Mental Status Sepsis Action Taken by Nursing Oxygen Flow Rate - Titration 4 Pulse Oximetry Post Tiitration 96 02/08/24 13:30 02/08/24 13:30 02/08/24 13:30 Temperature Temperature Source Pulse Rate 117 H Pulse Rate [Apical] Pulse Rate from SpO2 Sensor 112 H Pulse Rhythm Pulse Strength Respiratory Rate 25 H Respiratory Effort / Characteristics Respiratory Depth Blood Pressure 131/97 131/97 Blood Pressure [Right Arm] Blood Pressure Mean 104 104 Blood Pressure Mean [Right Arm] Blood Pressure Position Pulse Oximetry 90 Oxygen Delivery Method Sepsis Recent Fever Within 48 Hours Sepsis New/Unexplained Change in Mental Status Sepsis Action Taken by Nursing Oxygen Flow Rate - Titration Pulse Oximetry Post Tiitration 02/08/24 13:54 Temperature Temperature Source Pulse Rate 112 H Pulse Rate [Apical] Pulse Rate from SpO2 Sensor Pulse Rhythm Pulse Strength Respiratory Rate 21 Respiratory Effort / Characteristics Respiratory Depth Blood Pressure Blood Pressure [Right Arm] Blood Pressure Mean Blood Pressure Mean [Right Arm] Blood Pressure Position Pulse Oximetry 97 Oxygen Delivery Method Sepsis Recent Fever Within 48 Hours Sepsis New/Unexplained Change in Mental Status Sepsis Action Taken by Nursing Oxygen Flow Rate - Titration Pulse Oximetry Post Tiitration Physical Exam HENT: Exam performed. - Head: Normocephalic and atraumatic. EYES: Conjunctivae and EOM are normal. Right eye exhibits no discharge. Left eye exhibits no discharge. No scleral icterus. NECK: Normal range of motion. Neck supple. No JVD present. CV: Tachycardic rate, irregular rhythm, normal heart sounds and intact distal pulses. There is no peripheral edema. Palpable radial pulses bue. PULM/CHEST: Diminished breath sounds bilaterally. Rhonchi bilaterally. ABD: The abdomen is soft. There is no tenderness. NEURO: Motor and sensation grossly intact. SKIN: Skin is warm and dry. He is not diaphoretic. PSYCH: normal mood and affect. Behavior is normal. Judgment and thought content normal. Course Course 1220: The patient was evaluated in room B1. A complete history and physical exam was performed Cardiac monitoring: An order was placed for continuous cardiac monitoring. The monitor shows a rate of 120 with atrial fibrilation rhythm interpreted by me Patient tachycardic and hypotensive. Sepsis protocols initiated. Patient be treated with 30 cc/kg normal saline bolus. 1315: Patient becoming hypoxic on room air. Supplemental oxygen applied via nasal cannula to improve the patient's oxygen saturation. Patient's chest x-ray shows right middle lobe pneumonia. Broad-spectrum antibiotics started on the patient. 1340: Vital signs stable on supplemental oxygen via nasal cannula. Labs show leukocytosis of 21.25. Lactic acid within normal limits. Procalcitonin elevated. Patient admitted to [facility]. Administered Medications Diltiazem HCl (Diltiazem Hcl 30 Mg Tab) 30 mg PO Q6H BRIGIDO Stop: 02/08/24 22:01 Last Admin: 02/08/24 16:29 Dose: Not Given Documented By: HB Vitamin D (Cholecalciferol 25 Mcg (1000 Units) Tab) 25 mcg PO QDD BRIGIDO Stop: 03/09/24 17:20 Last Admin: 02/08/24 18:42 Dose: 25 mcg Documented By: CF Discontinued Medications Sodium Chloride (Nss) 1,000 mls @ 999 mls/hr IV .Q1H1M BRIGIDO Stop: 02/08/24 14:30 Last Infusion: 02/08/24 13:50 Dose: Infused Documented By: Admin: 02/08/24 12:49 Dose: 999 mls/hr Documented By: Infusion: 02/08/24 12:49 Dose: Infused Documented By: Admin: 02/08/24 12:29 Dose: 999 mls/hr Documented By: HS Sodium Chloride (Nss) 1,000 mls @ 999 mls/hr IV .Q1H1M ONE Stop: 02/08/24 14:03 Last Infusion: 02/08/24 15:30 Dose: Infused Documented By: Admin: 02/08/24 13:08 Dose: 999 mls/hr Documented By: HS Cefepime HCl (Maxipime 2000mg) 2,000 mg in 20 mls @ 5 mls/min IV NOW STA; Protocol Stop: 02/08/24 13:06 Last Admin: 02/08/24 13:08 Dose: 5 mls/min Documented By: HS Vancomycin HCl 1,500 mg/ (Sodium Chloride) 530 mls @ 200 mls/hr IV NOW ONE Stop: 02/08/24 15:59 Last Infusion: 02/08/24 17:57 Dose: Infused Documented By: Admin: 02/08/24 14:46 Dose: 200 mls/hr Documented By: ML Sodium Chloride (Nss) 500 mls @ 999 mls/hr IV .Q31M ONE Stop: 02/08/24 14:06 Last Infusion: 02/08/24 15:30 Dose: Infused Documented By: Admin: 02/08/24 14:53 Dose: 999 mls/hr Documented By: ML Magnesium Sulfate/Dextrose (Magnesium Sulfate / D5w) 1 gm in 100 mls @ 50 mls/hr IV ONE ONE Stop: 02/08/24 15:49 Last Infusion: 02/08/24 17:57 Dose: Infused Documented By: Admin: 02/08/24 15:29 Dose: 50 mls/hr Documented By: ARBEN Metoprolol Succinate (Metoprolol Succ 50mg Ext Rel Tab) 100 mg PO NOW STA Stop: 02/08/24 14:10 Last Admin: 02/08/24 15:33 Dose: 100 mg Documented By: ARBEN Critical Care Time Critical Care Time: Yes Total Critical Care Time: 58 I have personally spent greater than 58 minutes of critical care time in the direct management of this patient. This includes bedside care, interpretation of diagnostic studies, and testing, discussion with consultants, patient, and family members, and other required patient management activities. This 58 minutes is in excess of all separately billable procedures. Medical Decision Making Laboratory Data Attestation: I reviewed the patient's lab results. 02/08/24 12:19 02/08/24 12:19 Lab Results 02/08/24 02/08/24 02/08/24 Range/Units 12:19 12:19 12:19 WBC 21.25 H (4.8-10.8) K/ul RBC 4.04 L (4.20-5.40) M/uL Hgb 13.3 (12.0-16.0) g/dl Hct 39.6 (37.0-47.0) % MCV 98.0 (80.0-100.0) fL MCH 32.9 (25.0-34.0) pg MCHC 33.6 (32.0-36.0) g/dL RDW Std Deviation 43.7 (36.4-46.3) fL RDW Coeff of Fabian 12.0 (11.5-14.5) % Plt Count 194 (130-400) K/uL MPV 10.0 (9.4-12.4) fL Immature Gran % (Auto) 0.8 % Neut % (Auto) 92.1 % Lymph % (Auto) 1.5 % [place] % (Auto) 5.5 % Eos % (Auto) 0.0 % Baso % (Auto) 0.1 % Neut # (Auto) 19.60 H (1.40-6.50) K/uL Lymph # (Auto) 0.31 L (1.20-3.40) K/uL [place] # (Auto) 1.16 H (0.11-0.59) K/uL Eos # (Auto) 0.00 (0.00-0.50) K/uL Baso # (Auto) 0.02 (0.00-0.20) K/uL Immature Gran # (Auto) 0.16 (0.01-0.20) K/uL Tear Drop Cells 1+ Ovalocytes 1+ PT 12.8 H (9.0-12.0) Seconds INR 1.2 H (0.9-1.1) APTT 31 (21-31) Seconds PTT Ratio 1.2 VBG pH (7.36-7.41) VBG pCO2 (38-50) mmHg VBG pO2 mmHg VBG HCO3 mmol/L VBG O2 Saturation % VBG Base Excess mEq/L Sodium 139 (136-145) mmol/L Potassium 3.8 (3.5-5.1) mmol/L Chloride 102 (98-107) mmol/L Carbon Dioxide 27 (21-32) mmol/L Anion Gap 10 (3-11) BUN 12 (6-23) mg/dl Creatinine 0.91 (0.6-1.2) mg/dl Est Cr Clr Drug Dosing 42.6 ml/min eGFR 61.82 BUN/Creatinine Ratio 13.2 (10-20) Glucose 119 H (70-99(Fasting)) mg/dl Lactate (0.4-2.0) mmol/L Calcium 8.8 (8.6-10.3) mg/dl Magnesium 1.7 (1.7-2.4) mg/dl Total Bilirubin 1.3 H (0.2-1.0) mg/dl AST 17 (13-39) U/L ALT 12 (7-52) U/L Alkaline Phosphatase 72 (34-104) U/L Troponin I High Sens 10.1 (0-14) pg/ml Total Protein 6.1 (6.0-8.3) gm/dl Albumin 4.1 (3.4-5.0) gm/dl Globulin 2.0 L (2.5-4.0) gm/dl Albumin/Globulin Ratio 2.0 (0.9-2) Procalcitonin 0.76 H (0-0.5) ng/ml Urine Color Urine Appearance (Clear) Urine pH (4.5-7.5) Ur Specific [place] (1.000-1.030) Urine Protein (Negative) Urine Glucose (UA) (Negative) Urine Ketones (Negative) Urine Blood (Negative) Urine Nitrite (Negative) Urine Bilirubin (Negative) Urine Urobilinogen (Negative) Ur Leukocyte Esterase (Negative) Urine WBC (Auto) (0-5) /hpf Urine RBC (Auto) (0-2) /hpf U Hyaline Cast (Auto) (0-2) /lpf U Epithel Cells (Auto) (0-2) /hpf Urine Bacteria (Auto) (None Seen) Urine Mucus (None Prsent) Adenovirus (PCR) Not Detected (NotDetected) B. pertussis DNA (PCR) Not Detected (NotDetected) B.parapertussis DNA PCR Not Detected (NotDetected) C. pneumoniae DNA (PCR) Not Detected (NotDetected) Coronavirus OC43 (PCR) Not Detected (NotDetected) Coronavirus HKU1 (PCR) Not Detected (NotDetected) Coronavirus 229E (PCR) Not Detected (NotDetected) SARS-CoV-2 (PCR) NEGATIVE Not Detected (Negative) Coronavirus NL63 (PCR) Not Detected (NotDetected) Human Metapneumovir PCR Not Detected (NotDetected) Influenza Type A (PCR) Negative Not Detected (Neg) Influenza Type B (PCR) Negative (Neg) M. pneumoniae (PCR) (NotDetected) Parainfluenza 1 (PCR) (NotDetected) Parainfluenza 2 (PCR) (NotDetected) Parainfluenza 3 (PCR) (NotDetected) Parainfluenza 4 (PCR) (NotDetected) RSV (RT-PCR) (Neg) RSV (PCR) (NotDetected) Entero/Rhino (PCR) (NotDetected) 02/08/24 02/08/24 02/08/24 Range/Units 12:19 12:31 12:38 WBC (4.8-10.8) K/ul RBC (4.20-5.40) M/uL Hgb (12.0-16.0) g/dl Hct (37.0-47.0) % MCV (80.0-100.0) fL MCH (25.0-34.0) pg MCHC (32.0-36.0) g/dL RDW Std Deviation (36.4-46.3) fL RDW Coeff of Fabian (11.5-14.5) % Plt Count (130-400) K/uL MPV (9.4-12.4) fL Immature Gran % (Auto) % Neut % (Auto) % Lymph % (Auto) % [place] % (Auto) % Eos % (Auto) % Baso % (Auto) % Neut # (Auto) (1.40-6.50) K/uL Lymph # (Auto) (1.20-3.40) K/uL [place] # (Auto) (0.11-0.59) K/uL Eos # (Auto) (0.00-0.50) K/uL Baso # (Auto) (0.00-0.20) K/uL Immature Gran # (Auto) (0.01-0.20) K/uL Tear Drop Cells Ovalocytes PT (9.0-12.0) Seconds INR (0.9-1.1) APTT (21-31) Seconds PTT Ratio VBG pH 7.40 (7.36-7.41) VBG pCO2 45 (38-50) mmHg VBG pO2 20 mmHg VBG HCO3 28 mmol/L VBG O2 Saturation < 60.0 % VBG Base Excess 2.5 mEq/L Sodium (136-145) mmol/L Potassium (3.5-5.1) mmol/L Chloride (98-107) mmol/L Carbon Dioxide (21-32) mmol/L Anion Gap (3-11) BUN (6-23) mg/dl Creatinine (0.6-1.2) mg/dl Est Cr Clr Drug Dosing ml/min eGFR BUN/Creatinine Ratio (10-20) Glucose (70-99(Fasting)) mg/dl Lactate 1.9 (0.4-2.0) mmol/L Calcium (8.6-10.3) mg/dl Magnesium (1.7-2.4) mg/dl Total Bilirubin (0.2-1.0) mg/dl AST (13-39) U/L ALT (7-52) U/L Alkaline Phosphatase (34-104) U/L Troponin I High Sens (0-14) pg/ml Total Protein (6.0-8.3) gm/dl Albumin (3.4-5.0) gm/dl Globulin (2.5-4.0) gm/dl Albumin/Globulin Ratio (0.9-2) Procalcitonin (0-0.5) ng/ml Urine Color Urine Appearance (Clear) Urine pH (4.5-7.5) Ur Specific [place] (1.000-1.030) Urine Protein (Negative) Urine Glucose (UA) (Negative) Urine Ketones (Negative) Urine Blood (Negative) Urine Nitrite (Negative) Urine Bilirubin (Negative) Urine Urobilinogen (Negative) Ur Leukocyte Esterase (Negative) Urine WBC (Auto) (0-5) /hpf Urine RBC (Auto) (0-2) /hpf U Hyaline Cast (Auto) (0-2) /lpf U Epithel Cells (Auto) (0-2) /hpf Urine Bacteria (Auto) (None Seen) Urine Mucus (None Prsent) Adenovirus (PCR) (NotDetected) B. pertussis DNA (PCR) (NotDetected) B.parapertussis DNA PCR (NotDetected) C. pneumoniae DNA (PCR) (NotDetected) Coronavirus OC43 (PCR) (NotDetected) Coronavirus HKU1 (PCR) (NotDetected) Coronavirus 229E (PCR) (NotDetected) SARS-CoV-2 (PCR) (Negative) Coronavirus NL63 (PCR) (NotDetected) Human Metapneumovir PCR (NotDetected) Influenza Type A (PCR) (Neg) Influenza Type B (PCR) Not Detected (Neg) M. pneumoniae (PCR) Not Detected (NotDetected) Parainfluenza 1 (PCR) Not Detected (NotDetected) Parainfluenza 2 (PCR) Not Detected (NotDetected) Parainfluenza 3 (PCR) Not Detected (NotDetected) Parainfluenza 4 (PCR) Not Detected (NotDetected) RSV (RT-PCR) Negative (Neg) RSV (PCR) Not Detected (NotDetected) Entero/Rhino (PCR) Not Detected (NotDetected) 02/08/24 Range/Units 13:03 WBC (4.8-10.8) K/ul RBC (4.20-5.40) M/uL Hgb (12.0-16.0) g/dl Hct (37.0-47.0) % MCV (80.0-100.0) fL MCH (25.0-34.0) pg MCHC (32.0-36.0) g/dL RDW Std Deviation (36.4-46.3) fL RDW Coeff of Fabian (11.5-14.5) % Plt Count (130-400) K/uL MPV (9.4-12.4) fL Immature Gran % (Auto) % Neut % (Auto) % Lymph % (Auto) % [place] % (Auto) % Eos % (Auto) % Baso % (Auto) % Neut # (Auto) (1.40-6.50) K/uL Lymph # (Auto) (1.20-3.40) K/uL [place] # (Auto) (0.11-0.59) K/uL Eos # (Auto) (0.00-0.50) K/uL Baso # (Auto) (0.00-0.20) K/uL Immature Gran # (Auto) (0.01-0.20) K/uL Tear Drop Cells Ovalocytes PT (9.0-12.0) Seconds INR (0.9-1.1) APTT (21-31) Seconds PTT Ratio VBG pH (7.36-7.41) VBG pCO2 (38-50) mmHg VBG pO2 mmHg VBG HCO3 mmol/L VBG O2 Saturation % VBG Base Excess mEq/L Sodium (136-145) mmol/L Potassium (3.5-5.1) mmol/L Chloride (98-107) mmol/L Carbon Dioxide (21-32) mmol/L Anion Gap (3-11) BUN (6-23) mg/dl Creatinine (0.6-1.2) mg/dl Est Cr Clr Drug Dosing ml/min eGFR BUN/Creatinine Ratio (10-20) Glucose (70-99(Fasting)) mg/dl Lactate (0.4-2.0) mmol/L Calcium (8.6-10.3) mg/dl Magnesium (1.7-2.4) mg/dl Total Bilirubin (0.2-1.0) mg/dl AST (13-39) U/L ALT (7-52) U/L Alkaline Phosphatase (34-104) U/L Troponin I High Sens (0-14) pg/ml Total Protein (6.0-8.3) gm/dl Albumin (3.4-5.0) gm/dl Globulin (2.5-4.0) gm/dl Albumin/Globulin Ratio (0.9-2) Procalcitonin (0-0.5) ng/ml Urine Color [place] Urine Appearance Clear (Clear) Urine pH 6.0 (4.5-7.5) Ur Specific [place] 1.022 (1.000-1.030) Urine Protein 1+ H (Negative) Urine Glucose (UA) Negative (Negative) Urine Ketones 1+ H (Negative) Urine Blood Negative (Negative) Urine Nitrite Negative (Negative) Urine Bilirubin 1+ H (Negative) Urine Urobilinogen Negative (Negative) Ur Leukocyte Esterase Trace H (Negative) Urine WBC (Auto) 0-5 (0-5) /hpf Urine RBC (Auto) 0-2 (0-2) /hpf U Hyaline Cast (Auto) 0-2 (0-2) /lpf U Epithel Cells (Auto) 3-5 H (0-2) /hpf Urine Bacteria (Auto) None Seen (None Seen) Urine Mucus Present A (None Prsent) Adenovirus (PCR) (NotDetected) B. pertussis DNA (PCR) (NotDetected) B.parapertussis DNA PCR (NotDetected) C. pneumoniae DNA (PCR) (NotDetected) Coronavirus OC43 (PCR) (NotDetected) Coronavirus HKU1 (PCR) (NotDetected) Coronavirus 229E (PCR) (NotDetected) SARS-CoV-2 (PCR) (Negative) Coronavirus NL63 (PCR) (NotDetected) Human Metapneumovir PCR (NotDetected) Influenza Type A (PCR) (Neg) Influenza Type B (PCR) (Neg) M. pneumoniae (PCR) (NotDetected) Parainfluenza 1 (PCR) (NotDetected) Parainfluenza 2 (PCR) (NotDetected) Parainfluenza 3 (PCR) (NotDetected) Parainfluenza 4 (PCR) (NotDetected) RSV (RT-PCR) (Neg) RSV (PCR) (NotDetected) Entero/Rhino (PCR) (NotDetected) Imaging Data Attestation: I personally reviewed and interpreted this imaging study as follows: My Impression: Chest x-ray: Right middle lobe infiltrate Radiologist's Impression: Chest X-Ray 02/08/24 12:20 XR chest 1V portable CLINICAL HISTORY: Sepsis. COMPARISON STUDY: Chest radiograph June 02, 2021. FINDINGS: Cardiomegaly is noted. There is pulmonary vascular congestion. Moderate right lower lung airspace opacity is present. There is a small to moderate right pleural effusion. There is no pneumothorax. No consolidation within the left lung is present. IMPRESSION: 1. Cardiomegaly with pulmonary vascular congestion. 2. Small to moderate right pleural effusion. Right lower lung opacity may reflect pneumonia. Atelectasis could appear similar. Radiographic follow-up to ensure resolution is recommended. ACT 112: Negative or not required by law. Electronically signed by: Hugo Drake M.D. 02/08/2024 1:[address] 02/08/24 12:21 CT head/brain wo con CLINICAL HISTORY: 83 years-old Female with ams. Acutely altered mental status TECHNIQUE: Multiple axial CT images of the head were obtained without contrast. A dose lowering technique was utilized adhering to the principles of ALARA. CT DOSE: 547.75 mGy.cm COMPARISON: 06/02/2021 FINDINGS: No acute intracranial hemorrhage, midline shift, intra-axial mass, hydrocephalus, territorial ischemia or abnormal extra-axial collection. Involutional changes with chronic microvascular ischemic disease. Vascular and cerebral vascular calcifications redemonstrated. 6 mm extra-axial calcification adjacent to the inferior left frontal lobe on image 9 series 2 is unchanged. The calvarium is intact. Moderate mucosal thickening of the ethmoid air cells. Small left maxillary air fluid level. Mastoid air cells are clear. Unremarkable soft tissues. IMPRESSION: No acute intracranial abnormality. ACT 112: Negative or not required by law. The above report was generated using voice recognition software. It may contain grammatical, syntax or spelling errors. Electronically signed by: Jose Bradford M.D. 02/08/2024 1:03 PM ECG Data Attestation: I personally reviewed and interpreted this ECG as follows: Rate (beats per minute): 119 Rhythm: + atrial fibrillation ECG Intervals/blocks: + Normal QRS and + Normal QT-c ECG ST segments: + Normal ST segments [facility] Narrative 1220: The patient was evaluated in room B1. A complete history and physical exam was performed Cardiac monitoring: An order was placed for continuous cardiac monitoring. The monitor shows a rate of 120 with atrial fibrilation rhythm interpreted by me Patient tachycardic and hypotensive. Sepsis protocols initiated. Patient be treated with 30 cc/kg normal saline bolus. 1315: Patient becoming hypoxic on room air. Supplemental oxygen applied via nasal cannula to improve the patient's oxygen saturation. Patient's chest x-ray shows right middle lobe pneumonia. Broad-spectrum antibiotics started on the patient. 1340: Vital signs stable on supplemental oxygen via nasal cannula. Labs show leukocytosis of 21.25. Lactic acid within normal limits. Procalcitonin elevated. Patient admitted to [facility]. Impression & Plan Pneumonia, Sepsis, Hypoxia Discharge Plan Visit Data Chief Complaint: Referred by Doctor Stated Complaint: PNEUMONIA, SOB, COUGH ED Provider: Danilo Rahman Discharge Problem: Pneumonia, Sepsis, Hypoxia Patient Disposition: Admitted As Inpatient Discharge Instructions Interventions: ED Discharge Assessment Last Done: 02/08/24 16:45 Discharge Problem: Pneumonia Qualifiers: Pneumonia type: due to unspecified organism Laterality: right Lung location: u nspecified part of lung Qualified Code(s): J18.9 - Pneumonia, unspecified organism
[2024-02-08] MEDS ORDERED: SIMVASTATIN 40 MG TAB PO SCH (21:00)
[2024-02-08] MEDS: ACETAMINOPHEN 325 MG TAB PO PRN (21:16)
[2024-02-08] MEDS: CALCIUM CARBONATE 1250MG TAB PO SCH (21:16)
[2024-02-08] MEDS: DONEPEZIL HCL 5 MG TAB PO SCH (21:17)
[2024-02-08] MEDS: MEMANTINE HCL 10 MG TAB PO SCH (21:17)
[2024-02-08] MEDS: RIVAROXABAN 15 MG TAB PO SCH (21:51)
[2024-02-09] MEDS: ALBUMIN 25% 25 GM/100 ML VIAL IV ONE (00:32)
[2024-02-09] MEDS: cefTRIAXone SODIUM 2,000 MG/50 ML BAG IV SCH (01:36)
[2024-02-09] MEDS: SODIUM CHLORIDE 0.9% 250 ML IV ONE (03:25)
--- NOTE | 2024-02-09 05:17 | Communication Note ---
Date of Service: February 09, 2024 After 2200 dose of diltiazem blood pressure decreased to 84/52. Asymptomatic, mentating appropriately. With concern for some pulmonary vacular congestion of CXR from 02/07, tried 25gm albumin-> blood pressure post albumin 88/54. Saw pt at bedside- very pleasant/mentating appropriately/asymptomatic and lungs clear to auscultation B/L, appeared euvolic. Gave 250cc Bolus NSS- improvement in blood pressure to 93/57. She is in afib, but rates have been well controlled in 80s/90s. Will hold diltiazem cd 180mg and Metoprolol succinate 100mg both due at 0900- concern for further hypotension and long acting medications. If blood pressure can tolerate qAM could consider adding back short acting diltiazem.
[2024-02-09] MEDS: LEVOTHYROXINE SODIUM 125 MCG TABLET PO SCH (05:52)
[2024-02-09 06:17] LABS: BUN Creatinine Ratio 16.2 (10-20); Calcium 7.8 mg/dl (8.6-10.3); Creatinine Clr Calc Pharmacy 58.3 ml/min; Potassium 3.5 mmol/L (3.5-5.1)
[2024-02-09 06:22] LABS: Basophils # (auto) 0.01 K/uL (0.00-0.20); Basophils % (auto) 0.1 %; Eosinophils # (auto) 0.02 K/uL (0.00-0.50); Eosinophils % (auto) 0.3 %; Hematocrit (blood only) 31.5 % (37.0-47.0); Hemoglobin 10.6 g/dl (12.0-16.0); Immature Granulocytes # (auto) 0.04 K/uL (0.01-0.20); Immature Granulocytes % (auto) 0.5 %; Lymphocytes # (auto) 0.62 K/uL (1.20-3.40); Lymphocytes % (auto) 7.8 %; Mean Corpuscular Hemoglobin 32.9 pg (25.0-34.0); Mean Corpuscular Hgb Conc 33.7 g/dL (32.0-36.0); Mean Corpuscular Volume 97.8 fL (80.0-100.0); Mean Platelet Volume 10.1 fL (9.4-12.4); Monocytes # (auto) 0.49 K/uL (0.11-0.59); Monocytes % (auto) 6.2 %; Neutrophils # (auto) 6.76 K/uL (1.40-6.50); Neutrophils % (auto) 85.1 %; Platelet Count 110 K/uL (130-400); RDW Coefficient of Variation 12.2 % (11.5-14.5); RDW Standard Deviation 44.3 fL (36.4-46.3); Red Blood Count 3.22 M/uL (4.20-5.40); White Blood Count 7.94 K/ul (4.8-10.8)
[2024-02-09] MEDS: VANCOMYCIN 750 MG in SODIUM CHLORIDE 0.9% 250 ML IV SCH (08:24)
[2024-02-09] MEDS: CYANOCOBALAMIN (B-12) 500 MCG TABLET PO SCH (08:24)
--- NOTE | 2024-02-09 08:33 | Hospitalist Progress Note ---
Date of Service February 09, 2024 Assessment & Plan (1) RLL pneumonia: Plan: Presented with cough, generalized weakness worsening x 1 week with hypoxia, tachycardia, hypotension with leukocytosis and identified source - meeting sepsis criteria on admission - CXR showed right lower lung opacity suspicious for pneumonia and small right pleural effusion. Mild pulmonary vascular congestion cardiomegaly were noted - Leukocytosis of 21 on admission, now resolved - MRSA nares negative. No history of resistant pneumonia - Blood cultures and sputum culture pending - Requiring supplemental O2 to maintain O2 sat; wean as able to maintain O2 sat >90% - Continue ceftriaxone for CAP; vancomycin discontinued given negative MRSA swab - PT/OT recommending rehab (2) Atrial fibrillation, permanent: Plan: Permanent A-fib - Last echo with EF 55-60%, moderate MR, moderate TR - Troponin normal - Continue rivaroxaban - Electrolytes replete - Rates currently uncontrolled with hypotension > Home metoprolol succinate 100 mg daily on HOLD > Will try metoprolol tartrate 25 mg BID with metoprolol IV with parameters ordered Plan Updated at bedside Discontinued vancomycin Adjusted metoprolol Chronic stable problems: Hypothyroidism: Continue Synthroid Dementia: Continue donepezil/memantine; maintain delirium precautions DVT prophylaxis: Anticoagulated CODE STATUS: DNR/DNI Admission and Anticipated Discharge Date Admission Date: February 08, 2024 Subjective Patient seen and evaluated at bedside with her present. A review of systems and subjective information was difficult to obtain due to patient's baseline mentation. She is very conversationally tangential. She denies any acute complaints or concerns. States she feels well. reports she is no more confused than her baseline. Physical Exam Physical Exam: General: No acute distress, nondiaphoretic, well-developed, well-nourished. Co nversationally tangential. Skin: Scattered bruising on hands/arms. Legs wrapped in compression wraps bilaterally. Cardiac: Irregularly irregular in the 80s. Systolic murmur noted. Pulm: Diminished breath sounds in RLL, but otherwise clear to auscultation bilaterally. No respiratory distress. 91% on room air. Abdominal: Soft, nontender, nondistended. Bowel sounds present. Neuro: A&O x1 (self only), baseline. No focal neurological deficits. Results & Data Results & Data Vital Signs (Past 12 Hours) Vital Signs Temp Pulse Pulse Resp BP BP Pulse Ox 02/09/24 07:42 02/09/24 04:25 93/57 L 02/09/24 03:48 88/57 L 02/09/24 03:01 88/54 L 02/09/24 02:33 98.4 F 90 18 88/49 L 93 02/08/24 23:59 88 85/55 L 02/08/24 23:00 97.5 F L 96 H 20 84/52 L 95 02/08/24 21:43 116 H O2 Del Method O2 Flow Rate 02/09/24 07:42 Oxymask 2 02/09/24 04:25 02/09/24 03:48 02/09/24 03:01 02/09/24 02:33 Oxymask 3.0 02/08/24 23:59 02/08/24 23:00 Oxymask 3.0 02/08/24 21:43 Laboratory Results Reviewed CBC Reviewed chemistries Reviewed UA PG Care Time/CCT Total # of Minutes Spent Total Time Spent with Patient: Total time spent is greater than 50% in coordination of care (as documented) at patient's floor/unit and/or counseling patient: Coding Level of Care Code 71776 SUB INP/OBS CARE 3/50MIN Diagnoses RLL pneumonia J18.9 Atrial fibrillation, permanent I48.21
[2024-02-09] MEDS ORDERED: dilTIAZem HCL 180 MG CAPCR PO SCH (09:00)
[2024-02-09] MEDS ORDERED: METOPROLOL SUCC 50MG EXT REL TAB PO SCH ×2 (09:00)
[2024-02-09] MEDS: METOPROLOL TARTRATE 25 MG TAB PO SCH (10:23)
[2024-02-10 06:17] LABS: Basophils # (auto) 0.02 K/uL (0.00-0.20); Basophils % (auto) 0.2 %; Eosinophils # (auto) 0.07 K/uL (0.00-0.50); Eosinophils % (auto) 0.9 %; Hematocrit (blood only) 33.7 % (37.0-47.0); Hemoglobin 11.5 g/dl (12.0-16.0); Immature Granulocytes # (auto) 0.04 K/uL (0.01-0.20); Immature Granulocytes % (auto) 0.5 %; Lymphocytes # (auto) 0.82 K/uL (1.20-3.40); Lymphocytes % (auto) 10.1 %; Mean Corpuscular Hemoglobin 32.9 pg (25.0-34.0); Mean Corpuscular Hgb Conc 34.1 g/dL (32.0-36.0); Mean Corpuscular Volume 96.3 fL (80.0-100.0); Mean Platelet Volume 10.4 fL (9.4-12.4); Monocytes # (auto) 0.55 K/uL (0.11-0.59); Monocytes % (auto) 6.8 %; Neutrophils # (auto) 6.62 K/uL (1.40-6.50); Neutrophils % (auto) 81.5 %; Platelet Count 133 K/uL (130-400); RDW Standard Deviation 42.6 fL (36.4-46.3); White Blood Count 8.12 K/ul (4.8-10.8)
--- NOTE | 2024-02-10 08:33 | Hospitalist Progress Note ---
Date of Service February 10, 2024 Assessment & Plan (1) RLL pneumonia: Plan: Presented with cough, generalized weakness worsening x 1 week with hypoxia, tachycardia, hypotension with leukocytosis and identified source - meeting sepsis criteria on admission - CXR showed right lower lung opacity suspicious for pneumonia and small right pleural effusion. Mild pulmonary vascular congestion cardiomegaly were noted - Leukocytosis of 21 on admission, now resolved - MRSA nares negative. No history of resistant pneumonia - Blood cultures and sputum culture pending - Requiring supplemental O2 to maintain O2 sat; wean as able to maintain O2 sat >90% - Continue ceftriaxone; vancomycin discontinued given negative MRSA swab - PT/OT recommending rehab (2) Atrial fibrillation, permanent: Plan: Permanent A-fib - Last echo with EF 55-60%, moderate MR, moderate TR - Troponin normal - Continue rivaroxaban - Electrolytes replete - Rates currently uncontrolled with hypotension. Home metoprolol succinate 100 mg daily on HOLD > Reviewed telemetry -- A fib in 100s, high in 170s - Continue metoprolol tartrate 25 mg BID with metoprolol IV with parameters ordered - Will give loading dose of digoxin followed by maintenance dose - Dig level added to AM labs Plan Updated and son at bedside Discussed medications with cardiology Reviewed telemetry Ordered digoxin Repleted potassium Ordered Ativan Chronic stable problems: Hypothyroidism: Continue Synthroid Dementia: Continue donepezil/memantine; maintain delirium precautions. Ativan 0.5 mg Q6H PRN anxiety/agitation DVT prophylaxis: Anticoagulated CODE STATUS: DNR/DNI Admission and Anticipated Discharge Date Admission Date: February 08, 2024 Subjective Patient seen and evaluated in bedside chair with her and son present. She remains pleasantly confused. She denies shortness of breath, difficulty breathing, or productive cough at this time. She does note she had productive cough with expectorated phlegm last night. She denies palpitations, chest pain. We discussed that her heart rate is uncontrolled currently and we are working to reduce it. We also discussed that PT is recommending rehab placement. Family would like to discuss options with case management. No additional complaints or concerns at this time. Physical Exam Physical Exam: General: No acute distress, nondiaphoretic, well-developed, well-nourished. Conversationally tangential. Skin: Scattered bruising on hands/arms. Legs wrapped in compression wraps bilaterally. Cardiac: Irregularly irregular in the 120s. Systolic murmur noted. Pulm: Diminished breath sounds in RLL, but otherwise clear to auscultation bilaterally. No respiratory distress. 93% on room air. Abdominal: Soft, nontender, nondistended. Bowel sounds present. Neuro: A&O x1 (self only), baseline. No focal neurological deficits. Results & Data Results & Data Vital Signs (Past 12 Hours) Vital Signs Temp Pulse Pulse Resp BP BP Pulse Ox 02/10/24 07:22 128 H 02/10/24 07:10 98.1 F 118 H 19 97/58 L 90 02/10/24 05:04 97.9 F 104 H 17 109/66 92 02/09/24 23:45 97.9 F 103 H 17 117/78 92 02/09/24 21:49 103 H 02/09/24 21:00 O2 Del Method 02/10/24 07:22 02/10/24 07:10 Room Air 02/10/24 05:04 Room Air 02/09/24 23:45 Room Air 02/09/24 21:49 02/09/24 21:00 Room Air Laboratory Results Reviewed CBC Reviewed BMP Reviewed blood cultures Reviewed sputum cultures PG Care Time/CCT Total # of Minutes Spent Total Time Spent with Patient: Total time spent is greater than 50% in coordination of care (as documented) at patient's floor/unit and/or counseling patient: Coding Level of Care Code 00773 SUB INP/OBS CARE 3/50MIN Diagnoses RLL pneumonia J18.9 Atrial fibrillation, permanent I48.21
[2024-02-10 09:19] LABS: BUN Creatinine Ratio 14.9 (10-20); Calcium 8.1 mg/dl (8.6-10.3); Creatinine Clr Calc Pharmacy 59.1 ml/min; Potassium 3.3 mmol/L (3.5-5.1)
[2024-02-10] MEDS: POTASSIUM CHLORIDE CRTAB 20 MEQ TABCR PO STA (10:32)
[2024-02-10] MEDS: DIGOXIN 500 MCG in SYRINGE 8 ML IV STA (10:32)
[2024-02-10] MEDS ORDERED: DIGOXIN 125 MCG in SYRINGE 9.5 ML IV SCH (16:00)
[2024-02-10] MEDS: DIGOXIN 0.125 MG TAB PO SCH (16:09)
[2024-02-10] MEDS: LORazepam 0.5 MG TAB PO PRN (16:10)
[2024-02-10] MEDS: DIGOXIN 250 MCG in SYRINGE 9 ML IV ONE (19:25)
[2024-02-11 06:21] LABS: Basophils # (auto) 0.02 K/uL (0.00-0.20); Basophils % (auto) 0.3 %; Eosinophils % (auto) 1.5 %; Hematocrit (blood only) 35.8 % (37.0-47.0); Hemoglobin 11.9 g/dl (12.0-16.0); Immature Granulocytes # (auto) 0.03 K/uL (0.01-0.20); Immature Granulocytes % (auto) 0.5 %; Lymphocytes # (auto) 0.75 K/uL (1.20-3.40); Lymphocytes % (auto) 11.3 %; Mean Corpuscular Hgb Conc 33.2 g/dL (32.0-36.0); Mean Corpuscular Volume 96.2 fL (80.0-100.0); Mean Platelet Volume 9.9 fL (9.4-12.4); Monocytes # (auto) 0.55 K/uL (0.11-0.59); Monocytes % (auto) 8.3 %; Neutrophils % (auto) 78.1 %; Platelet Count 147 K/uL (130-400); RDW Coefficient of Variation 11.9 % (11.5-14.5); RDW Standard Deviation 41.9 fL (36.4-46.3); Red Blood Count 3.72 M/uL (4.20-5.40); White Blood Count 6.65 K/ul (4.8-10.8)
[2024-02-11 06:41] LABS: BUN Creatinine Ratio 10.9 (10-20); Calcium 8.3 mg/dl (8.6-10.3); Creatinine Clr Calc Pharmacy 71.6 ml/min; Potassium 3.6 mmol/L (3.5-5.1)
--- NOTE | 2024-02-11 08:24 | Hospitalist Progress Note ---
Date of Service February 11, 2024 Assessment & Plan (1) RLL pneumonia: Plan: Presented with cough, generalized weakness worsening x 1 week with hypoxia, tachycardia, hypotension with leukocytosis and identified source - meeting sepsis criteria on admission - CXR showed right lower lung opacity suspicious for pneumonia and small right pleural effusion. Mild pulmonary vascular congestion cardiomegaly were noted - Leukocytosis of 21 on admission, now resolved - MRSA nares negative. No history of resistant pneumonia - Blood cultures and sputum culture negative - Requiring supplemental O2 to maintain O2 sat; wean as able to maintain O2 sat >90% - Continue ceftriaxone; vancomycin discontinued given negative MRSA swab - PT/OT recommending rehab; family prefers home health services; HH set up on discharge (2) Atrial fibrillation, permanent: Plan: Permanent A-fib - Last echo with EF 55-60%, moderate MR, moderate TR - Troponin normal - Continue rivaroxaban - Electrolytes replete - Rates currently uncontrolled with hypotension. Home metoprolol succinate 100 mg daily on HOLD > Reviewed telemetry -- overnight A fib low 90s-100s with high of 160s for about 10 minutes. Today has been A Flutter in low 80-90s - Continue metoprolol tartrate 25 mg BID with metoprolol IV with parameters ordered - Continue digoxin - Dig level WNL, will recheck with AM labs Plan Updated and son at bedside Reviewed telemetry Discussed discharge planning with case management Chronic stable problems: Hypothyroidism: Continue Synthroid Dementia: Continue donepezil/memantine; maintain delirium precautions. Ativan 0.5 mg Q6H PRN anxiety/agitation DVT prophylaxis: Anticoagulated CODE STATUS: DNR/DNI Admission and Anticipated Discharge Date Admission Date: February 08, 2024 Subjective Patient seen and evaluated in bedside chair with and son present. She remains pleasantly confused. She reports feeling improved and expresses gratitude towards the care she has received. She does have some evening time restlessness per family and RN. We discussed that her heart rate is much improved today. Will continue to monitor HR today and anticipate discharge home with HH services tomorrow. No additional complaints or concerns at this time. Physical Exam Physical Exam: General: No acute distress, nondiaphoretic, well-developed, well-nourished. Conversationally tangential. Skin: Scattered bruising on hands/arms. Legs wrapped in compression wraps bilaterally. Cardiac: Irregularly irregular in the 80s. Systolic murmur noted. Pulm: Diminished breath sounds in RLL, but otherwise clear to auscultation bilaterally. No respiratory distress. 93% on room air. Abdominal: Soft, nontender, nondistended. Bowel sounds present. Neuro: A&O x1 (self only), baseline. No focal neurological deficits. Results & Data Results & Data Vital Signs (Past 12 Hours) Vital Signs Temp Pulse Pulse Resp BP Pulse Ox O2 Del Method 02/11/24 07:09 97.3 F L 80 17 131/81 93 Room Air 02/11/24 06:59 104 H 02/11/24 03:14 97.7 F 86 14 132/85 92 Room Air 02/10/24 23:13 98.1 F 101 H 19 127/84 95 Room Air 02/10/24 23:13 98 H 02/10/24 21:40 Room Air Laboratory Results Reviewed CBC Reviewed BMP PG Care Time/CCT Total # of Minutes Spent Total Time Spent with Patient: Total time spent is greater than 50% in coordination of care (as documented) at patient's floor/unit and/or counseling patient: Coding Level of Care Code 59207 SUB INP/OBS CARE 3/50MIN Diagnoses RLL pneumonia J18.9 Atrial fibrillation, permanent I48.21
[2024-02-11] MEDS: METOPROLOL TARTRATE 1 MG/ML VIAL IV PRN (17:24)
[2024-02-12 03:18] VITALS: TEMP 98.4; O2SAT 92
[2024-02-12 07:03] LABS: BUN Creatinine Ratio 12.5 (10-20); Calcium 8.3 mg/dl (8.6-10.3); Creatinine Clr Calc Pharmacy 69.1 ml/min; Potassium 3.8 mmol/L (3.5-5.1)
[2024-02-12 07:23] VITALS: BP 137/75; RESP 16
[2024-02-12] MEDS: METOPROLOL SUCC 50MG EXT REL TAB PO SCH (08:41)
--- NOTE | 2024-02-12 08:49 | Discharge Summary ---
Discharge Summary Date of Service February 12, 2024 Principal Dx & Hospital Course #1 = Principal Diagnosis (1) RLL pneumonia: Presented with cough, generalized weakness worsening x 1 week with hypoxia, tachycardia, hypotension with leukocytosis and identified source - meeting sepsis criteria on admission - CXR showed right lower lung opacity suspicious for pneumonia and small right pleural effusion. Mild pulmonary vascular congestion cardiomegaly were noted - Leukocytosis of 21 on admission, now resolved - MRSA nares negative. No history of resistant pneumonia - Blood cultures and sputum culture negative - Treated with ceftriaxone while inpatient, discharged on Augmentin through 02/14/2024 - PT/OT recommending rehab; family prefers home health services; HH set up on discharge - Recommend repeat CXR to ensure resolution of RLL pneumonia (2) Atrial fibrillation, permanent: Permanent A-fib - Last echo with EF 55-60%, moderate MR, moderate TR - Troponin normal - Continue rivaroxaban - Electrolytes replete - Rates intermittently uncontrolled; adjusted regimen while inpatient - Continue metoprolol succinate 100 mg daily - Started/continue digoxin 125 mcg daily - Hold diltiazem until PCP follow-up appointment Plan Chronic stable problems: Hypothyroidism: Continue Synthroid Dementia: Continue donepezil/memantine DVT prophylaxis: Anticoagulated CODE STATUS: DNR/DNI Notes For Next Care Provider Recommend repeat CXR to ensure resolution of RLL pneumonia Monitor heart rate and blood pressure -- adjusted rate control regimen Diltiazem held until PCP follow-up appointment -- resume when appropriate Medication Changes From Visit Augmentin x 3 days Started digoxin 125 mcg daily Held diltiazem until PCP follow-up appointment Admission HPI Per Admitting Provider Lisa Reveles is an 83-year-old female with a past medical history of Alzheimer's disease, hyperlipidemia, peripheral vascular disease, pressure ulcer, hypothyroidism, A-fib on anticoagulation who presented to the ER on referral from PCP for cough, generalized weakness worsening x 1 week and with concerned about ability to provide care for her at home on her own due to her acute illness and increased needs. Patient was referred for sepsis rule out and PT/OT. While in the ER patient was found to have a leukocytosis of 21.2, normal VBG, elevated procalcitonin at 0.76, uninfected UA, CThead with no acute findings, and chest x-ray with small right pleural effusion and right lower lung opacity suspicious for pneumonia. Mild pulmonary vascular congestion cardiomegaly were noted. BioFire was pending on admission. While in the ER patient was given cefepime/vancomycin for pneumonia and recommended for admission. Lisa is seen with her at the bedside. They report that they went to family's for Thanksgiving and she had a slight cough at that time however this is progressed and she has had a thick heavy cough with intermittent sputum production although they do not know what color. Denies fevers, but patient has felt generally unwell with progressive worsening since Thanksgiving. Denies chest pain or chest pressure. Patient denies shortness of breath but endorses cough. Denies night sweats. History is somewhat limited by dementia and collected with the assistance of her at bedside. Patient has not missed any doses of her medications in the last week including her blood thinner, although has not yet taken her morning medications other than Synthroid. No recent medication changes. No nausea/vomiting/abdominal pain. No dysuria. Does have a history of right lower extremity wounds which are healing/improving and have not had any worsening recently. Does have a history of A-fib and has felt her heart fluttering sometimes, but denies chest pain/chest pressure. Former tobacco use in the distant past. Half a can of hard seltzer split with her sometimes at dinner otherwise no alcohol use. Medication allergies reviewed DNR/DNI, reviewed with patient and at bedside. Discharge Exam General: No acute distress, nondiaphoretic, well-developed, well-nourished. Conversationally tangential. Skin: Scattered bruising on hands/arms. Legs wrapped in compression wraps bilaterally. Cardiac: Irregularly irregular in the 80s. Systolic murmur noted. Pulm: Diminished breath sounds in RLL, but otherwise clear to auscultation bilaterally. No respiratory distress. 92% on room air. Abdominal: Soft, nontender, nondistended. Bowel sounds present. Neuro: A&O x1 (self only), baseline. No focal neurological deficits. Discharge Plan Discharge Items Patient Disposition: Home - Home Health Services Reason For Visit: SEPSIS, RLL PNA Discharge Diagnosis: Right lower lobe pneumonia, atrial fibrillation Activity: Per Instructions section Non-emergency contact: Primary Care Provider Call non-emergency contact if: you have any medication questions and your symptoms worsen Follow-up/Referrals: Yaritza Coello MD [Primary Care Provider] - (Follow-up in 1 week) Diet: Regular Addtl Attending Provider Instructions: Mrs. Reveles, You were admitted to the hospital due to right lower lobe pneumonia. You are treated with IV antibiotics while in the hospital, and will continue taking oral antibiotics at home. Your atrial fibrillation was uncontrolled at points during this hospitalization, likely due to being acutely sick. After some adjustments in your regimen, your heart rate is now controlled. Home health has been set up on discharge for you. Upon discharge from the hospital: * Take Augmentin (oral antibiotic) twice daily x 3 more days. This is to complete your treatment for pneumonia. * Start Digoxin 1 tablet (125 mcg) daily. This is to control your heart rate. * Continue your metoprolol succinate 100 mg daily. * HOLD your diltiazem until your PCP follow-up appointment. * Continue to use the incentive spirometer as instructed. * Follow-up with your PCP in 1 week. Please return to the hospital if you experience any of the following: Unable to speak or swallow, lips or skin looked blue/purple/delarosa, feeling dizzy, fainting, difficulty awakening, feeling of doom, difficulty breathing, shortness of breath, rapid breathing (>25 breaths per minute), coughing up blood, chest pain, confusion, or any other symptoms concerning for you. It was a pleasure taking care of you while you were in the hospital, Marlene Dobson PA-C Pending Studies at Discharge: No Stand-Alone Forms: [facility], Smoking Cessation Medications and DC Order Prescriptions: New digoxin [Digitek] 125 mcg (0.125 mg) Tablet 0.125 mg PO DAILY Qty: 30 0RF amoxicillin-pot clavulanate 875-125 mg tablet 1 tab PO BID Qty: 6 0RF Continued memantine 10 mg tablet 10 mg PO BID 90 Days Qty: 180 3RF metoprolol succinate 100 mg tablet extended release 24 hr 100 mg PO QAM Qty: 90 3RF simvastatin 40 mg tablet 40 mg PO HS Qty: 90 3RF rivaroxaban 15 mg tablet 15 mg PO DAILY Qty: 90 3RF Rx Instructions: must administer with evening meal donepezil 5 mg tablet 5 mg PO HS 30 Days Qty: 30 5RF levothyroxine [Synthroid] 125 mcg tablet 125 mcg PO DAILY Qty: 90 3RF calcium carbonate [Calcium 500] 500 mg calcium (1,250 mg) tablet,chewable 500 mg PO HS cyanocobalamin (vitamin B-12) 1,000 mcg capsule 1,000 mcg PO QAM cholecalciferol (vitamin D3) 1,000 unit tablet 1,000 units PO QDD Held diltiazem HCl 180 mg capsule,extended release 24 hr 180 mg PO DAILY Qty: 90 3RF Hold Instructions: Provider's Order - hold until PCP f/u Discharge Orders: Discharge Order (Routine); Ordered 02/12/24 Ordered By: Marlene Viera/Other Patient Handouts: When You Have Pneumonia, ED Pneumonia (Adult) Admission Data Admit Date/Time: 02/08/24 14:08 Attending Provider: Woody Jaquez Admit Provider: Joey Sheffield Primary Care Provider: Yaritza Coello Other Providers: Joey Sheffield; [facility] Fax Hospital Stay Data Consultations 02/08/24 13:37 ED Decision to Admit Stat Diagnostic Imagining Performed 02/08/24 12:21 CT head/brain wo con Stat Pending Results Patient Have Any Pending Studies at Discharge: No Discharge Instructions Given to Patient (Per Discharging Provider) Mrs. Reveles, Frans[place] were admitted to the hospital due to right lower lobe pneumonia. You are treated with IV antibiotics while in the hospital, and will continue taking oral antibiotics at home. Your atrial fibrillation was uncontrolled at points during this hospitalization, likely due to being acutely sick. After some adjustments in your regimen, your heart rate is now controlled. Home health has been set up on discharge for you. Upon discharge from the hospital: * Take Augmentin (oral antibiotic) twice daily x 3 more days. This is to complete your treatment for pneumonia. * Start Digoxin 1 tablet (125 mcg) daily. This is to control your heart rate. * Continue your metoprolol succinate 100 mg daily. * HOLD your diltiazem until your PCP follow-up appointment. * Continue to use the incentive spirometer as instructed. * Follow-up with your PCP in 1 week. Please return to the hospital if you experience any of the following: Unable to speak or swallow, lips or skin looked blue/purple/delarosa, feeling dizzy, fainting, difficulty awakening, feeling of doom, difficulty breathing, shortness of breath, rapid breathing (>25 breaths per minute), coughing up blood, chest pain, confusion, or any other symptoms concerning for you. It was a pleasure taking care of you while you were in the hospital, Marlene Dobson PA-C Total Time Total Time Spent Total Time Spent (In Minutes): Greater than 30 minutes spent completing this discharge process including direct patient care, medication reconciliation, documentation, review of labs and images, and coordination of care. Coding Level of Care Code 69240 INP/OBS DISCH >30 MIN Diagnoses RLL pneumonia J18.9 Atrial fibrillation, permanent I48.21
[2024-02-12] MEDS: METOPROLOL SUCC 50MG EXT REL TAB PO STA (08:58)
[2024-02-12 09:12] VITALS: PULSE 97
--- NOTE | 2024-02-13 14:22 | Coding Query ---
CODING QUERY To promote full compliance with coding requirements relating to patient care, provider participation is requested in all cases of gamemaster uncertainty. Please assist us with the question(s) below: Clinical Indicators: ED Note: * Temp - 36.5; Pulse - 123; Resp - 20; BP - 88/51; Pulse Ox - 96 * WBC - 21.25 * Procalcitonin - 0.76 * Lactate - 1.9 History and Physical: * Right lower lobe pneumonia * right lower lobe infiltrate on admitting chest x-ray * Patient met sepsis criteria on admission Discharge Summary: * Presented with cough, generalized weakness worsening x 1 week with hypoxia, tachycardia, hypotension with leukocytosis and identified source - meeting sepsis criteria on admission * Treated with ceftriaxone while inpatient, discharged on Augmentin through 02/14/2024 Coding Question(s): Based on the above clinical indicators, can you further specify if sepsis was: ( xxx) Ruled in ( ) Ruled out ( ) Other (please specify) ( ) Unable to determine. Thank you Joselin Calix Principal Diagnosis: "that condition established after study, to be chiefly responsible for occasioning the admission of the patient to the hospital for care." Co-Existing Principal Diagnosis: "when two or more diagnoses equally meet the criteria for principal diagnosis as determined by the circumstances of admission, diagnostic work up, and/or therapy provided, and the Alphabetic Index, Tabular List, or another coding guideline does not provide sequencing direction, any one of the diagnoses may be sequenced first." "When the physician has documented what appears to be a current diagnosis in the body of the record, but has not included the diagnosis in the final diagnostic statement, the physician should be asked whether the diagnosis should be added." (Source Coding [facility] 2 QTR90. p3-4) KAYCEE
== END 2024-02-12 10:36 | disposition home health service (06) | DRG 871 ==
LOC: ED 12:05 → 2E 14:08 → SUATTDRO 14:08 → 2E 16:45